=== PATIENT | male | born 1955 | race Caucasian/White ===

== ENCOUNTER 2019-11-29 09:13 | Outpatient (CLI) | payer MEDICARE, SELFPAY ==
[2019-11-29 10:30] LABS: Alanine Aminotransferase 23 U/L (16-63); Albumin Level 3.7 g/dL (3.4-5.0); Alkaline Phosphatase 131 U/L (46-116); Anion Gap 12.1 mmol/L (7-16); Aspartate Amino Transferase 17 U/L (15-37); Bilirubin,Total 0.7 mg/dL (0.00-1.00); Blood Urea Nitrogen 16 mg/dL (7-18); Calcium 9.5 mg/dL (8.5-10.1); Carbon Dioxide 29 mmol/L (21-32); Chloride 102 mmol/L (98-108); Estimated Glomerular Filt Rate > 60; Glucose 123 mg/dL (70-99); Osmolality Calculated 290 mOsm/kg (285-295); Potassium 4.1 mmol/L (3.5-5.1); Sodium 139 mmol/L (136-145); Total Protein 6.9 g/dL (6.4-8.2)
== END 2019-11-29 09:14 | disposition home or self-care (01) ==
LOC: CHSLAB 09:17
PROVIDERS: PCP Internal Medicine; Visit Provider Physician Assistant
DX: E11.9 Type 2 diabetes mellitus without complications (principal)
CPT/HCPCS: 36415; 80053; 83036

== ENCOUNTER 2020-05-01 08:19 | Outpatient (CLI) | payer MEDICARE, SELFPAY ==
[2020-05-01 08:35] LABS: Hematocrit 47.4 % (37.0-46.0); Hemoglobin 15.9 g/dL (12.4-15.3); Mean Corpuscular HGB Conc 33.5 g/dL (32.0-36.0); Mean Corpuscular Volume 98.3 fL (78.0-102.0); Mean Platelet Volume 9.7 fl (8.7-11.0); Platelet Count Result 298 K/mm3 (150-420); Red Blood Count 4.82 M/mm3 (4.70-6.10); Red Cell Distribution Width 12.3 % (11.6-14.4); White Blood Count 8.9 K/mm3 (4.8-10.8)
[2020-05-01 09:07] LABS: Hemoglobin A1C 6.9 % (<5.7)
[2020-05-01 10:05] LABS: Alanine Aminotransferase 22 U/L (16-63); Alkaline Phosphatase 138 U/L (46-116); Anion Gap 9 mmol/L (8-16); Aspartate Amino Transferase 10 U/L (15-37); Bilirubin,Total 0.6 mg/dL (0.00-1.00); Blood Urea Nitrogen 15 mg/dL (7-18); Calcium 9.8 mg/dL (8.5-10.1); Carbon Dioxide 29 mmol/L (21-32); Chloride 104 mmol/L (98-108); Cholesterol 138 mg/dL (0-200); Estimated Glomerular Filt Rate > 60; Glucose 130 mg/dL (70-99); HDL Direct 45 mg/dL (40-60); LDL Cholesterol Calculated 61 mg/dL (<130); Osmolality Calculated 296 mOsm/kg (285-295); Potassium 4.2 mmol/L (3.5-5.1); Prostate Specific Antigen 0.5 ng/mL (< OR = 4.0); Sodium 142 mmol/L (136-145); Thyroid Stimulating Hormone 1.34 uIU/mL (0.36-3.74); Total Protein 7.1 g/dL (6.4-8.2); Triglycerides 159 mg/dL (0-150)
== END 2020-05-01 08:20 | disposition home or self-care (01) ==
PROVIDERS: PCP Internal Medicine; Visit Provider Physician Assistant
DX: R53.83 Other fatigue (principal); E11.9 Type 2 diabetes mellitus without complications; Z12.5 Encounter for screening for malignant neoplasm of prostate; Z01.83 Encounter for blood typing
CPT/HCPCS: 36415; 80053; 80061; 83036; 84153; 84443; 85027; 86850; 86900; 86901; G0103

== ENCOUNTER 2020-11-13 08:52 | Outpatient (CLI) | payer MEDICARE, SELFPAY ==
[2020-11-13 09:10] LABS: Hemoglobin A1C 7.5 % (<5.7)
[2020-11-13 09:49] LABS: Alanine Aminotransferase 24 U/L (16-63); Albumin Level 3.8 g/dL (3.4-5.0); Alkaline Phosphatase 135 U/L (46-116); Anion Gap 12 mmol/L (8-16); Aspartate Amino Transferase 11 U/L (15-37); Bilirubin,Total 0.7 mg/dL (0.00-1.00); Blood Urea Nitrogen 15 mg/dL (7-18); Calcium 9.5 mg/dL (8.5-10.1); Carbon Dioxide 29 mmol/L (21-32); Chloride 100 mmol/L (98-108); Estimated Glomerular Filt Rate > 60; Glucose 132 mg/dL (70-99); Osmolality Calculated 294 mOsm/kg (285-295); Potassium 4.1 mmol/L (3.5-5.1); Sodium 141 mmol/L (136-145); Total Protein 6.7 g/dL (6.4-8.2)
== END 2020-11-13 08:53 | disposition home or self-care (01) ==
LOC: CHSLAB 08:54
PROVIDERS: PCP Internal Medicine; Visit Provider Physician Assistant
DX: E11.9 Type 2 diabetes mellitus without complications (principal)
CPT/HCPCS: 36415; 80053; 83036

== ENCOUNTER 2020-12-20 01:41 | Day surgery (SDC) | payer MEDICARE, SELFPAY ==
[2020-12-11 11:16] VITALS: BMI 28.0
[2020-12-20 07:41] VITALS: BP 115/76; PULSE 63; RESP 18; TEMP 36.1; O2SAT 99; BMI 28.4
[2020-12-20] MEDS: LACTATED RINGERS 1,000 ML 150 ML IV CONT (07:49)
[2020-12-20 07:59] LABS: Glucose Point of Care 139 mg/dl (65-105)
--- NOTE | 2020-12-20 08:29 | WPDANESEPPF ---
Anes - Initial Pre Proc Eval Procedure: Operation Date: 12/20/20 09:00 Proposed Procedures p Esophagogastroduodenoscopy & Screening Colonoscopy - Bear Kirkpatrick MD Date/Time: 12/20/20 08:29 Surgeon: Bear Kirkpatrick MD Pre Op Diagnosis: early satiety, neoplasm screening Patient Data Age: 65 Gender: M Height: 1.75 m Weight: 87.4 kg Last Vital Signs Temp 36.1 C L 12/20/20 07:41 Pulse 63 12/20/20 07:41 Resp 18 12/20/20 07:41 BP 115/76 12/20/20 07:41 Pulse Ox 99 12/20/20 07:41 Allergies Allergy/AdvReac Type Severity Reaction Status Date / Time lisinopril Allergy Severe SWELLING Verified 12/20/20 07:40 OF THROAT AND TONGUE Home Medications Medication Instructions Recorded Confirmed Type finasteride 5 mg tablet 5 mg PO DAILY #90 tablet 07/03/20 12/20/20 Rx atorvastatin 20 mg tablet 20 mg PO DAILY #90 tablet 07/07/20 12/20/20 Rx allopurinol 300 mg tablet 300 mg PO DAILY #90 tablet 10/27/20 12/20/20 Rx omeprazole 40 mg capsule,delayed 40 mg PO DAILY #90 cap 11/14/20 12/20/20 Rx release diltiazem HCl 240 mg 240 mg PO DAILY #90 cap 11/23/20 12/20/20 Rx capsule,extended release 24 hr empagliflozin 25 mg tablet 25 mg PO DAILY #90 tablet 11/28/20 12/20/20 Rx metformin 1,000 mg tablet 1,000 mg PO BID #180 tablet 11/28/20 12/20/20 Rx telmisartan 80 mg tablet 80 mg PO DAILY #90 tablet 11/28/20 12/20/20 Rx trazodone 50 mg tablet 50 mg PO QHS PRN #90 tablet 11/28/20 12/20/20 Rx Laboratory Tests 12/20/20 07:57 POC Capillary Glucose 139 mg/dl H mg/dl (65-105) Patient hx anesthesia problems: none Family hx anesthesia problems: none PMFSH Past Medical History Medical History Diabetes mellitus last A1c in chart 12/31/19 7.0 GERD (gastroesophageal reflux disease) Kidney stones Right rotator cuff tear Skin cancer Weight loss Surgical History Surgical History History of arthroscopy of right shoulder Hx of cataract surgery (~2017) S/P right rotator cuff repair Family History Family History Mother Hypertension Family history of heart disease in male family member before age 55 Family history of congestive heart failure, Onset Age: 89 Cerebrovascular accident Father Acute myocardial infarction FH myocardial infarction male first degree age known, Onset Age: 59 Hypertension Other Carcinoma of colon Diabetes mellitus Social History Social History Smoking status: Never smoker Second hand tobacco smoke exposure: No Alcohol intake: current Drinks per week: 1 Alcohol use details: 1-2 drinks a month Substance use: never Living arrangements: alone Spiritual care concerns: No Anes - Eval Final PreProcedure Day of Procedure 12/20/20 08:29 Patient weight: overweight Heart: regular rate and rhythm Lungs: clear to auscultation Airway: Mallampati scale class II Neurological: alert and oriented Last oral intake: >/= 8 hours ASA classification: III Emergent: no Anesthetic plan: proceed Anesthesia type and monitoring: general GIVS and standard monitoring Informed Consent: The patient's anesthetic plan and its attendant risks and benefits were discussed with the patient/family/POA. Questions were solicited and answers provided to the satisfaction of the patient/family/POA.
--- NOTE | 2020-12-20 08:56 | PM.HPGS ---
History of Present Illness History of Present Illness Consent: Risks, benefits, and alternatives have been discussed and questions answered. Patient agrees to proceed with procedure. Chief complaint: early satiety, neoplasm screening Narrative: Tony Pelayo is a 65 year old male with early satiety and weight loss. he has lost 8 lb this year alone. He is also due for colon cancer screening Review of Systems Review of Systems: All systems reviewed & are unremarkable except as noted in HPI and below PMFSH Past Medical History Medical History (Updated 12/20/20 @ 08:57 by Bear Kirkpatrick MD) Diabetes mellitus last A1c in chart 05/17/19 7.0 GERD (gastroesophageal reflux disease) Kidney stones Right rotator cuff tear Skin cancer Weight loss Surgical History Surgical History History of arthroscopy of right shoulder Hx of cataract surgery (~2016) S/P right rotator cuff repair Family History Family History Mother Hypertension Family history of heart disease in male family member before age 55 Family history of congestive heart failure, Onset Age: 89 Cerebrovascular accident Father Acute myocardial infarction FH myocardial infarction male first degree age known, Onset Age: 59 Hypertension Other Carcinoma of colon Diabetes mellitus Social History Social History Smoking status: Never smoker Second hand tobacco smoke exposure: No Alcohol intake: current Drinks per week: 1 Alcohol use details: 1-2 drinks a month Substance use: never Living arrangements: alone Spiritual care concerns: No Meds Home Medications and Allergies Home Medications Medication Instructions Recorded Confirmed Type finasteride 5 mg tablet 5 mg PO DAILY #90 tablet 07/03/20 12/20/20 Rx atorvastatin 20 mg tablet 20 mg PO DAILY #90 tablet 07/07/20 12/20/20 Rx allopurinol 300 mg tablet 300 mg PO DAILY #90 tablet 10/27/20 12/20/20 Rx omeprazole 40 mg capsule,delayed 40 mg PO DAILY #90 cap 11/14/20 12/20/20 Rx release diltiazem HCl 240 mg 240 mg PO DAILY #90 cap 11/23/20 12/20/20 Rx capsule,extended release 24 hr empagliflozin 25 mg tablet 25 mg PO DAILY #90 tablet 11/28/20 12/20/20 Rx metformin 1,000 mg tablet 1,000 mg PO BID #180 tablet 11/28/20 12/20/20 Rx telmisartan 80 mg tablet 80 mg PO DAILY #90 tablet 11/28/20 12/20/20 Rx trazodone 50 mg tablet 50 mg PO QHS PRN #90 tablet 11/28/20 12/20/20 Rx Allergies Allergy/AdvReac Type Severity Reaction Status Date / Time lisinopril Allergy Severe SWELLING Verified 12/20/20 07:40 OF THROAT AND TONGUE Vital Signs Vital Signs - 24 hr 12/20/20 07:41 Temperature 36.1 C L Pulse Rate 63 Respiratory Rate 18 Blood Pressure 115/76 Pulse Oximetry 99 Exam Resp: Auscultation: clear to auscultation bilaterally Cardio: Rate: regular rate Rhythm: regular rhythm GI: GI Palp: Yes Soft to palpation and No Tenderness to palpation present (GI) Assessment and Plan Assessment and plan (1) Weight loss: Code(s): R63.4 - Abnormal weight loss Status: Acute Assessment and Plan: EGD with possible biopsy or dilatation or cautery. (2) Colon cancer screening: Code(s): Z12.11 - Encounter for screening for malignant neoplasm of colon Status: Acute Assessment and Plan: Colonoscopy with possible biopsy or polypectomy or cautery or injection of substances.
[2020-12-20 09:42] VITALS: BP 97/64; PULSE 48; RESP 15; O2SAT 97
[2020-12-20 09:52] VITALS: BP 129/78; PULSE 61; RESP 20; O2SAT 98
[2020-12-20 10:02] VITALS: BP 115/62; PULSE 49; RESP 24; O2SAT 98
== END 2020-12-20 10:18 | disposition home or self-care (01) ==
PROVIDERS: PCP Physician Assistant; Visit Provider Internal Medicine Gastroenterology
PROC: 0DJ08ZZ Inspection of Upper Intestinal Tract, Via Natural or Artificial Opening Endoscopic (ICD-10-PCS; CPT 43235; principal; 2020-12-20 09:00)
DX: Z12.11 Encounter for screening for malignant neoplasm of colon (principal); K57.30 Diverticulosis of large intestine without perforation or abscess without bleeding; D12.2 Benign neoplasm of ascending colon; R63.4 Abnormal weight loss; K21.9 Gastro-esophageal reflux disease without esophagitis; E11.9 Type 2 diabetes mellitus without complications; Z79.84 Long term (current) use of oral hypoglycemic drugs
CPT/HCPCS: 45381; 45385; 43239; 82948; 87081; 88305; J2001; J2704; J7120

== ENCOUNTER 2020-12-31 14:09 | Emergency (ER) | payer MEDICARE, SELFPAY ==
--- NOTE | ~2020-12-31 | CT_ITS ---
EXAMINATION: CT soft tissue neck wo con DATE: 12/31/2020 14:58 INDICATION: Right anterior neck foreign body sensation. TECHNIQUE: Computed tomography (CT) of the neck was performed without intravenous contrast. Automated exposure control and iterative reconstruction technique were employed. The dose-length product was 6 30.82 mGy-cm. COMPARISON: None FINDINGS: There are no pathologically enlarged lymph nodes. There is a coarse calcification in right thyroid lobe. There is moderate cervical spondylosis. IMPRESSION: 1. No foreign body. Reviewed, dictated and finalized at location B. IMPRESSION: 1. No foreign body.
[2020-12-31 14:15] VITALS: BP 156/94; PULSE 76; RESP 20; TEMP 37; O2SAT 95
--- NOTE | 2020-12-31 14:23 | ED.URI ---
HPI - URI/Sore Throat General Chief Complaint: Upper Respiratory Infection Stated Complaint: Throat Issues Time Seen by Provider: 12/31/20 14:23 Source: patient Mode of arrival: ambulatory Limitations: no limitations History of Present Illness HPI Narrative: 65-year-old man comes in today complaining of 5 days of foreign body sensation in his right upper neck. Patient states that it is not painful and is not inhibit swallowing or breathing and has had no fever, sore throat, or swelling. He states that it is keeping him awake at night time. He states he 1st noticed it while mowing the lawn; he thinks something flew into his mouth. He states he also feels like there is something moving down his throat. elicited complaint: other (Foreign body sensation) Onset (ago): day(s) (5) Consistency: constant Severity: moderate Able to tolerate fluids by mouth: Yes Exacerbating factors: supine positioning Relieving factors: nothing Associated symptoms: denies other symptoms Treatments prior to arrival: none Related Data Home Medications Medication Instructions Recorded Confirmed empagliflozin [Jardiance] 25 mg PO DAILY 12/31/20 12/31/20 Allergies Allergy/AdvReac Type Severity Reaction Status Date / Time lisinopril Allergy Severe SWELLING Verified 12/20/20 07:40 OF THROAT AND TONGUE Review of Systems Constitutional: Constitutional: Denies chills and Denies fever(s) Eyes: Eyes: Denies change in vision and Denies photophobia ENT: Denies nasal congestion and Denies sore throat Cardiovascular: Cardiovascular: Denies chest pain and Denies radiating jaw, neck or arm pain Respiratory: Respiratory: Denies cough and Denies dyspnea Gastrointestinal: Gastrointestinal: Denies abdominal pain, Denies nausea and Denies vomiting Musculoskeletal: Musculoskeletal: Denies back pain, Denies arthralgias and Denies joint swelling Integumentary/Breasts: Skin/Breast: Denies pruritus, Denies erythema and Denies rash Neurologic: Denies headache(s), Denies focal weakness and Denies numbness Allergic/Immunologic: Allergic/Immunologic: Denies lip swelling, Denies throat swelling and Denies tongue swelling PMFSH Past Medical History Medical History (Updated 12/31/20 @ 15:48 by Branden Valladares MD) Diabetes mellitus last A1c in chart 05/17/19 7.0 GERD (gastroesophageal reflux disease) Kidney stones Right rotator cuff tear Skin cancer Weight loss Surgical History Surgical History History of arthroscopy of right shoulder Hx of cataract surgery (~2017) S/P right rotator cuff repair Family History Family History Mother Hypertension Family history of heart disease in male family member before age 55 Family history of congestive heart failure, Onset Age: 89 Cerebrovascular accident Father Acute myocardial infarction FH myocardial infarction male first degree age known, Onset Age: 59 Hypertension Other Carcinoma of colon Diabetes mellitus Social History Social History Smoking status: Never smoker Second hand tobacco smoke exposure: No Alcohol intake: current Drinks per week: 1 Alcohol use details: 1-2 drinks a month Substance use: never Spiritual care concerns: No Exam Const: General: healthy appearing, no acute distress and alert Orientation/consciousness: patient oriented x3 Limitations: no limitations HENMT: Head: normal to inspection Ears: EAC's normal General nose exam: Normal nares present Face and sinus: normal facial exam Mouth: Yes moist mucous membranes Throat: posterior oropharynx normal Eyes: Conjunctivae: conjunctivae normal Pupils: Equal, round and reactive pupils present EOM: EOMs intact bilaterally Neck: Neck: normal visual inspection and no lymphadenopathy Other: Supple. No tenderness, masses, swe
[2020-12-31 15:56] VITALS: RESP 20
== END 2020-12-31 15:57 | disposition home or self-care (01) ==
PROVIDERS: Emergency Provider Emergency Medicine; PCP Internal Medicine
DX: R09.89 Other specified symptoms and signs involving the circulatory and respiratory systems (principal); E11.9 Type 2 diabetes mellitus without complications; K21.9 Gastro-esophageal reflux disease without esophagitis
CPT/HCPCS: 70490; 99283

== ENCOUNTER 2021-03-26 10:40 | Emergency (ER) | payer MEDICARE, SELFPAY ==
--- NOTE | ~2021-03-26 | CT_ITS ---
EXAMINATION: CT cervical spine wo con DATE: 03/26/2021 12:13 INDICATION: Head injury. TECHNIQUE: Computed tomography (CT) of the cervical spine was performed without intravenous contrast. Automated exposure control and iterative reconstruction technique were employed. The dose-length pro duct was 488.06 mGy-cm. COMPARISON: Neck CT 12/31/2020 FINDINGS: There is 4 degrees dextrocurvature of cervical spine. Vertebral body heights are normal. Th ere is mildly decreased disc height at C3-C4 and C5-C6 and moderately decreased disc height at C6-C7. The following disc levels are specifically discussed: C2-C3: There is mild right uncovertebral joint osteoarthritis. There is mild right and moderate left facet joint osteoarthritis. There is no neural foraminal stenosis. There is no central canal stenosis . C3-C4: There is severe right and mild left uncovertebral joint osteoarthritis. There is mild bilatera l facet joint osteoarthritis. There is mild right neural foraminal stenosis. There is no central fauzia l stenosis. C4-C5: There is no uncovertebral joint osteoarthritis. There is mild left facet joint osteoarthritis. There is no neural foraminal stenosis. There is no central canal stenosis. C5-C6: There is mild bilateral uncovertebral joint osteoarthritis. There is no facet joint osteoarthr itis. There is mild bilateral neural foraminal stenosis. There is mild central canal stenosis. C6-C7: There is severe bilateral uncovertebral joint osteoarthritis. There is no facet joint osteoart hritis. There is mild bilateral neural foraminal stenosis. There is mild central canal stenosis. C7-T1: There is no uncovertebral joint osteoarthritis. There is severe right and mild left facet join t osteoarthritis. There is mild right neural foraminal stenosis. There is no central canal stenosis. IMPRESSION: 1. No fracture. 2. Moderate cervical spondylosis. Reviewed, dictated and finalized at location A. FRAME SOFTWARE DEVELOPER
--- NOTE | ~2021-03-26 | CT_ITS ---
EXAMINATION: CT brain wo con DATE: 03/26/2021 12:13 INDICATION: Head injury. TECHNIQUE: Computed tomography (CT) of the head was performed without intravenous contrast. The mA wa s adjusted according to patient size. Iterative reconstruction technique was employed. The dose-lengt h product was 529.67 mGy-cm. COMPARISON: None FINDINGS: There is an old infarct in left cerebellum. There is no intracranial hemorrhage, acute infa rction, or abnormal intracranial mass lesion. The ventricles are normal in size. There is mild mucosa l thickening in the ethmoid sinuses. The mastoid air cells are normal. The orbits are normal. IMPRESSION: 1. Old infarct in left cerebellum. Reviewed, dictated and finalized at location A. RMATION ASSURANCE MANAGER
--- NOTE | ~2021-03-26 | XR_ITS ---
EXAMINATION: XR knee RT 3V DATE: 03/26/2021 12:19 INDICATION: Right knee injury. TECHNIQUE: 3 views of right knee were obtained. COMPARISON: None. FINDINGS: There is lateral subluxation of patella. No fracture. There is mild tricompartmental osteoa rthritis. There is a small knee joint effusion. There is anterior soft tissue swelling. IMPRESSION: 1. Mild right knee osteoarthritis. 2. Small right knee joint effusion. Reviewed, dictated and finalized at location A. ABLE IRRIGATION OPERATOR
--- NOTE | 2021-03-26 10:41 | PC.NURSE ---
Went out to waiting room and checked on pt. Multiple abrasions noted to the face. Bleeding controlled. Pt denies LOC.
[2021-03-26 11:30] VITALS: BP 159/74; PULSE 71; RESP 16; TEMP 37.3; O2SAT 96
--- NOTE | 2021-03-26 11:31 | ED.FALL ---
HPI - Fall General Chief Complaint: Fall Stated Complaint: fell up the step Time Seen by Provider: 03/26/21 11:31 Source: patient Mode of arrival: ambulatory Limitations: no limitations History of Present Illness HPI Narrative: 66-year-old male with diabetes mellitus, GERD, skin cancer, bilateral shoulder surgeries got his foot caught up and fell on his face. No loss of consciousness. No neck or back pain. He presents with -- extensive bruising of his left face involving the forehead the left cheek nose and chin. No ENT bleeding. -- right knee abrasion. normal range of motion. complaint: fall Onset (ago): minute(s) ( 2-1/2 hours ago) Fall from: standing Fall witnessed: no Place fall occurred: home Loss of consciousness: none Symptoms prior to fall: none Context: tripped/slipped Location of injury: face and other ( right knee) Location of injury - extremities: Right: knee Severity: moderate Severity scale (1-10): 3 Quality: burning Associated symptoms (after fall): denies Related Data Home Medications Medication Instructions Recorded Confirmed empagliflozin [Jardiance] 25 mg PO DAILY 12/31/20 12/31/20 Allergies Allergy/AdvReac Type Severity Reaction Status Date / Time lisinopril Allergy Severe SWELLING Verified 12/20/20 07:40 OF THROAT AND TONGUE Review of Systems Review of Systems: All systems reviewed & are unremarkable except as noted in HPI and below Constitutional: Constitutional: Reports as per HPI Eyes: Eyes: Reports as per HPI and Reports no additional eye complaints ENT: Reports system reviewed and no additional complaints, except as documented Cardiovascular: Cardiovascular: Reports as per HPI and Reports no additional cardiovascular complaints Respiratory: Respiratory: Reports as per HPI and Reports no additional respiratory complaints Gastrointestinal: Gastrointestinal: Reports as per HPI and Reports no additional gastrointestinal complaints Genitourinary: Genitourinary: Reports no additional male genitourinary complaints Musculoskeletal: Comments: right knee pain he Integumentary/Breasts: Comments: extensive abrasion over the left face and right knee. Neurologic: Reports system reviewed and no additional complaints, except as documented Psychiatric: Psychiatric: Reports no additional psychiatric complaints Endocrine: Endocrine: Reports no additional endocrine complaints Hematologic/Lymphatic: Hematologic/Lymphatic: Reports no additional hematologic/lymphatic complaints [facility] Past Medical History Medical History (Updated 03/26/21 @ 12:43 by Be De Jesus MD) Diabetes mellitus last A1c in chart 05/17/19 7.0 GERD (gastroesophageal reflux disease) Kidney stones Right rotator cuff tear Skin cancer Weight loss Surgical History Surgical History History of arthroscopy of right shoulder Hx of cataract surgery (~2017) S/P right rotator cuff repair Family History Family History Mother Hypertension Family history of heart disease in male family member before age 55 Family history of congestive heart failure, Onset Age: 89 Cerebrovascular accident Father Acute myocardial infarction FH myocardial infarction male first degree age known, Onset Age: 59 Hypertension Other Carcinoma of colon Diabetes mellitus Social History Social History Smoking status: Never smoker Second hand tobacco smoke exposure: No Alcohol intake: current Drinks per week: 1 Alcohol use details: 1-2 drinks a month Substance use: never Spiritual care concerns: No Exam Const: General: cooperative and anxious HENMT: Head: normal to inspection, No palpable skull fracture present, normocephalic and abrasion ( Abrasions over the left face including the forehead left cheek left nose ) Ears:
[2021-03-26 13:36] VITALS: BP 164/90; PULSE 65; RESP 16; O2SAT 96
== END 2021-03-26 14:10 | disposition home or self-care (01) ==
PROVIDERS: Emergency Provider Internal Medicine Critical Care Medicine; PCP Internal Medicine
DX: S09.90XA Unspecified injury of head, initial encounter (principal); T14.8XXA Other injury of unspecified body region, initial encounter; W19.XXXA Unspecified fall, initial encounter; E11.9 Type 2 diabetes mellitus without complications; K21.9 Gastro-esophageal reflux disease without esophagitis
CPT/HCPCS: 70450; 72125; 73562; 99282; 99284

== ENCOUNTER 2021-05-03 10:33 | Outpatient (CLI) | payer MEDICARE, SELFPAY ==
[2021-05-03 10:55] LABS: Hemoglobin 16.1 g/dL (12.4-15.3); Mean Corpuscular HGB Conc 34.3 g/dL (32.0-36.0); Mean Corpuscular Hemoglobin 32.6 pg (27.0-31.0); Mean Corpuscular Volume 95.1 fL (78.0-102.0); Mean Platelet Volume 9.9 fl (8.7-11.0); Platelet Count Result 254 K/mm3 (150-420); Red Blood Count 4.94 M/mm3 (4.70-6.10); White Blood Count 8.8 K/mm3 (4.8-10.8)
[2021-05-03 11:07] LABS: Hemoglobin A1C 8.3 % (<5.7)
[2021-05-03 11:44] LABS: Alanine Aminotransferase 25 U/L (16-63); Albumin Level 3.6 g/dL (3.4-5.0); Alkaline Phosphatase 171 U/L (46-116); Anion Gap 7 mmol/L (8-16); Aspartate Amino Transferase 12 U/L (15-37); Bilirubin,Total 0.9 mg/dL (0.00-1.00); Blood Urea Nitrogen 11 mg/dL (7-18); Calcium 9.3 mg/dL (8.5-10.1); Carbon Dioxide 30 mmol/L (21-32); Chloride 105 mmol/L (98-108); Cholesterol 150 mg/dL (0-200); Estimated Glomerular Filt Rate > 60; Glucose 177 mg/dL (70-99); HDL Direct 44 mg/dL (40-60); LDL Cholesterol Calculated 76 mg/dL (<130); Osmolality Calculated 297 mOsm/kg (285-295); Potassium 4.5 mmol/L (3.5-5.1); Prostate Specific Antigen 0.5 ng/mL (< OR = 4.0); Sodium 142 mmol/L (136-145); Total Protein 6.8 g/dL (6.4-8.2); Triglycerides 150 mg/dL (0-150); Vitamin B12 114 pg/mL (193-986)
[2021-05-03 11:45] LABS: Folic Acid > 20.0 ng/mL (8.6->20)
== END 2021-05-03 10:34 | disposition home or self-care (01) ==
LOC: CHSLAB 10:35
PROVIDERS: PCP Physician Assistant; Visit Provider Physician Assistant
DX: E11.9 Type 2 diabetes mellitus without complications (principal); E66.3 Overweight; Z12.5 Encounter for screening for malignant neoplasm of prostate; R53.83 Other fatigue
CPT/HCPCS: 36415; 80053; 80061; 82607; 82746; 83036; 84153; 84443; 85027; G0103

== ENCOUNTER 2021-05-08 09:49 | Outpatient (CLI) | payer MEDICARE, SELFPAY ==
[2021-05-10 13:13] LABS: Mitochondrial (M2) Ab (IgG) <=20.0 U (<=20.0)
== END 2021-05-08 09:50 | disposition home or self-care (01) ==
LOC: CHSLAB 09:51
PROVIDERS: PCP Internal Medicine; Visit Provider Physician Assistant
DX: R74.8 Abnormal levels of other serum enzymes (principal)
CPT/HCPCS: 36415; 83520

== ENCOUNTER 2021-08-07 10:00 | Outpatient (CLI) | payer MEDICARE, SELFPAY ==
[2021-08-07 10:37] LABS: Hemoglobin A1C 7.6 % (<5.7)
[2021-08-07 12:28] LABS: Alanine Aminotransferase 21 U/L (16-63); Albumin Level 3.6 g/dL (3.4-5.0); Alkaline Phosphatase 121 U/L (46-116); Anion Gap 8 mmol/L (8-16); Aspartate Amino Transferase 15 U/L (15-37); Bilirubin,Total 0.8 mg/dL (0.00-1.00); Blood Urea Nitrogen 17 mg/dL (7-18); Calcium 8.9 mg/dL (8.5-10.1); Carbon Dioxide 29 mmol/L (21-32); Chloride 103 mmol/L (98-108); Estimated Glomerular Filt Rate > 60; Glucose 157 mg/dL (70-99); Osmolality Calculated 294 mOsm/kg (285-295); Sodium 140 mmol/L (136-145); Total Protein 6.6 g/dL (6.4-8.2); Vitamin B12 217 pg/mL (193-986)
== END 2021-08-07 10:01 | disposition home or self-care (01) ==
LOC: CHSLAB 10:02
PROVIDERS: PCP Internal Medicine; Visit Provider Physician Assistant
DX: E11.9 Type 2 diabetes mellitus without complications (principal); E53.8 Deficiency of other specified B group vitamins
CPT/HCPCS: 36415; 80053; 82607; 82746; 83036

== ENCOUNTER 2022-01-31 09:53 | Outpatient (CLI) | payer MEDICARE, SELFPAY ==
[2022-01-31 10:20] LABS: Hemoglobin A1C 8.6 % (<5.7)
[2022-01-31 10:31] LABS: Alanine Aminotransferase 18 U/L (16-63); Albumin Level 3.7 g/dL (3.4-5.0); Alkaline Phosphatase 157 U/L (46-116); Anion Gap 10 mmol/L (8-16); Aspartate Amino Transferase 13 U/L (15-37); Bilirubin,Total 0.9 mg/dL (0.00-1.00); Blood Urea Nitrogen 14 mg/dL (7-18); Calcium 9.1 mg/dL (8.5-10.1); Carbon Dioxide 25 mmol/L (21-32); Chloride 104 mmol/L (98-108); Estimated Glomerular Filt Rate > 60; Glucose 157 mg/dL (70-99); Osmolality Calculated 291 mOsm/kg (285-295); Potassium 3.8 mmol/L (3.5-5.1); Sodium 139 mmol/L (136-145); Total Protein 6.8 g/dL (6.4-8.2)
[2022-02-03 07:57] LABS: MALB Creatinine Ratio 188.4 mg/g (0-30)
== END 2022-01-31 09:54 | disposition home or self-care (01) ==
PROVIDERS: PCP Internal Medicine; Visit Provider Physician Assistant
DX: E11.9 Type 2 diabetes mellitus without complications (principal)
CPT/HCPCS: 36415; 80053; 82043; 83036

== ENCOUNTER 2022-03-14 11:34 | Outpatient (RCR) | payer MEDICARE, SELFPAY ==
--- NOTE | 2022-03-14 12:13 | PTOPEVAL1 ---
Assessment and note entered by JT File, PT Evaluation Information Assessment Status Evaluation Diagnosis R shoulder RTC tear Onset 03/11/22 Subjective Information patient reports he is having a flare up of pain in the R shoulder following a fall at home. he reports the shoulder is a bit better since his fall, but reports he has had shoulder issues for years. he reports he was told he has a full rotator cuff tear in the R shoulder. he reports he is trying to put off shoulder surgery due to living alone. 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 Reported Pain Level Pain Score 3: Self Report Assessment PT Clinical Summary mr. main is a 67 yo man who presents to skilled PT services for evaluation and treatment of R shoulder pain. he presents this date with signs and symptoms of R worse than L RTC tendinopathy/weakness, and L worse than R OA. he would do well to attend skilled PT to improve his objective/funcitonal deficits and progress towards a return to his prior level functional activity performance/quality of life. Plan of Care Interventions Electrical Stimulation,Hot Pack/Cold Pack,Manual Therapy,Patient/Caregiver Educati,Therapeutic Activities,Therapeutic Exercise PT Services Indicated Yes Treatment Frequency and 3x weekly for 12 visits Duration These treatments will address the objective and functional deficits as defined above. The patient will be advanced safely and appropriately in order for the patient to progress towards his/her prior level of function. Additional exercises will be introduced and as well as a comprehensive home exercise program upon discharge, if needed, ?to ensure carryover of functional gains achieved in the clinic. This treatment plan has been reviewed and agreement upon by the patient.
--- NOTE | 2022-04-18 16:32 | PTOPDC ---
Assessment and note entered by JT File, PT Evaluation Information Assessment Status Discharge Diagnosis R shoulder RTC tear Onset 03/11/22 Subjective Information patient reports he feels Great this date. he reports little to no pain in the R shoulder. he reports feeling both his mobility and strength are improved scine coming to therapy.
== END 2022-04-17 18:00 | disposition home or self-care (01) ==
LOC: CHSPT 11:34
PROVIDERS: Visit Provider Nurse Practitioner
DX: M75.121 Complete rotator cuff tear or rupture of right shoulder, not specified as traumatic (principal)
CPT/HCPCS: 97014; 97110; 97161; G0283

== ENCOUNTER 2022-07-02 10:16 | Outpatient (CLI) | payer MEDICARE, SELFPAY ==
[2022-07-02 10:30] LABS: Basophils Absolute Auto 0.08 K/mm3 (0.00-0.10); Basophils Percent Auto 0.9 % (0.0-1.0); Eosinophils Absolute Auto 0.09 K/mm3 (0.02-0.50); Hematocrit 46.9 % (37.0-46.0); Hemoglobin 16.1 g/dL (12.4-15.3); Immature Granulocyte Absolute 0.05 K/mm3 (0.00-0.00); Immature Granulocyte Percent A 0.6 % (0.0-0.0); Lymphocytes Percent Auto 16.5 % (18.0-42.0); Mean Corpuscular HGB Conc 34.3 g/dL (32.0-36.0); Mean Corpuscular Hemoglobin 32.3 pg (27.0-31.0); Mean Corpuscular Volume 94.2 fL (78.0-102.0); Mean Platelet Volume 9.4 fl (8.7-11.0); Monocytes Absolute Auto 0.82 K/mm3 (0.10-0.90); Neutrophils Absolute Auto 6.6 K/mm3 (1.7-7.2); Platelet Count Result 289 K/mm3 (150-420); Red Blood Count 4.98 M/mm3 (4.70-6.10); White Blood Count 9.1 K/mm3 (4.8-10.8)
[2022-07-02 10:42] LABS: Hemoglobin A1C 8.7 % (<5.7)
[2022-07-02 11:27] LABS: Alanine Aminotransferase 16 U/L (16-63); Albumin Level 3.8 g/dL (3.4-5.0); Alkaline Phosphatase 163 U/L (46-116); Anion Gap 5 mmol/L (8-16); Aspartate Amino Transferase 15 U/L (15-37); Bilirubin,Total 0.8 mg/dL (0.00-1.00); Blood Urea Nitrogen 11 mg/dL (7-18); Calcium 9.2 mg/dL (8.5-10.1); Carbon Dioxide 32 mmol/L (21-32); Chloride 101 mmol/L (98-108); Cholesterol 154 mg/dL (0-200); Estimated Glomerular Filt Rate > 60; Glucose 150 mg/dL (70-99); HDL Direct 52 mg/dL (40-60); LDL Cholesterol Calculated 76 mg/dL (<130); Osmolality Calculated 288 mOsm/kg (285-295); Potassium 3.8 mmol/L (3.5-5.1); Sodium 138 mmol/L (136-145); Thyroid Stimulating Hormone 0.91 uIU/mL (0.36-3.74); Total Protein 7.1 g/dL (6.4-8.2); Triglycerides 128 mg/dL (0-150); Vitamin B12 241 pg/mL (193-986)
== END 2022-07-02 10:17 | disposition home or self-care (01) ==
LOC: CHSLAB 10:18
PROVIDERS: PCP Internal Medicine; Visit Provider Physician Assistant
DX: E11.69 Type 2 diabetes mellitus with other specified complication (principal); E53.8 Deficiency of other specified B group vitamins; E66.3 Overweight; R53.83 Other fatigue
CPT/HCPCS: 36415; 80053; 80061; 82607; 82746; 83036; 84443; 85025

== ENCOUNTER 2022-12-31 09:54 | Outpatient (CLI) | payer MEDICARE, SELFPAY ==
[2022-12-31 10:42] LABS: Creatinine Urine 84.73 mg/dL (40-278); Microalbumin Urine Random 22.9 mg/L
[2022-12-31 10:59] LABS: Alanine Aminotransferase 11 U/L (16-63); Albumin Level 3.6 g/dL (3.4-5.0); Alkaline Phosphatase 137 U/L (46-116); Anion Gap 10 mmol/L (8-16); Aspartate Amino Transferase 12 U/L (15-37); Bilirubin,Total 0.9 mg/dL (0.00-1.00); Blood Urea Nitrogen 15 mg/dL (7-18); Carbon Dioxide 29 mmol/L (21-32); Chloride 105 mmol/L (98-108); Estimated Glomerular Filt Rate > 60; Glucose 111 mg/dL (70-99); Osmolality Calculated 299 mOsm/kg (285-295); Potassium 3.8 mmol/L (3.5-5.1); Sodium 144 mmol/L (136-145); Total Protein 6.6 g/dL (6.4-8.2)
== END 2022-12-31 09:55 | disposition home or self-care (01) ==
PROVIDERS: PCP Internal Medicine; Visit Provider Physician Assistant
DX: E11.69 Type 2 diabetes mellitus with other specified complication (principal)
CPT/HCPCS: 36415; 80053; 82043; 83036

== ENCOUNTER 2023-01-26 13:31 | Emergency (ER) | payer MEDICARE, SELFPAY ==
--- NOTE | ~2023-01-26 | XR_ITS ---
EXAMINATION: [id number] Exam Date/Time: 01/26/2023 14:09 CDT HISTORY: blunt trauma-FALL ONTO CURB X3DAYS AGO,PAIN Comparison: CT chest 03/08/2018. RESULT: Lines, tubes, and devices: None. Lungs and pleura: Streaky bibasilar opacities, otherwise clear. Cardiomediastinal silhouette: Stable. Other: No acute upper abdominal finding. Minimally displaced fractures of the right anterior fourth through eighth ribs IMPRESSION: Bibasilar scar/atelectasis. Minimally displaced fractures of the right anterior fourth through eighth ribs. Reviewed, dictated and finalized at location K.
[2023-01-26 13:32] VITALS: BP 151/78; PULSE 72; RESP 20; TEMP 36.8; O2SAT 94
--- NOTE | 2023-01-26 13:58 | ED.GENADULT ---
HPI - General Adult General Chief complaint: Fall Stated complaint: R rib pain/fall Time Seen by Provider: 01/26/23 13:57 History of Present Illness HPI narrative: 67yo man presents with right flank pain of gradual onset after falling 3 days ago, tripping over a curb. No head or neck trauma. Intact ROM. Related Data Home Medications Medication Instructions Recorded Confirmed triamcinolone acetonide 0.1 % 1 applic topical BID 07/08/22 01/26/23 topical cream Allergies Allergy/AdvReac Type Severity Reaction Status Date / Time lisinopril Allergy Severe SWELLING Verified 01/26/23 14:07 OF THROAT AND TONGUE Review of Systems Review of Systems: All systems reviewed & are unremarkable except as noted in HPI and below Constitutional: Constitutional: Denies chills and Denies fever(s) Eyes: Eyes: Denies change in vision ENT: Denies dysphagia and Denies dizziness Cardiovascular: Cardiovascular: Denies chest pain Respiratory: Respiratory: Denies dyspnea PMFSH Past Medical History Medical History B12 deficiency Degenerative arthritis of knee, bilateral Diabetes mellitus last A1c in chart 05/17/19 7.0 Elevated alkaline phosphatase level GERD (gastroesophageal reflux disease) Kidney stones Right rotator cuff tear Skin cancer Weight loss Surgical History Surgical History History of arthroscopy of right shoulder Hx of cataract surgery (~2017) S/P right rotator cuff repair Family History Family History Mother Hypertension Family history of heart disease in male family member before age 55 Family history of congestive heart failure, Onset Age: 89 Cerebrovascular accident Father Acute myocardial infarction FH myocardial infarction male first degree age known, Onset Age: 59 Hypertension Other Carcinoma of colon Diabetes mellitus Social History Social History Smoking status: Never smoker Second hand tobacco smoke exposure: No Alcohol intake: current Drinks per week: 1 Alcohol use details: 1-2 drinks a month Substance use: never Lack of Transportation: No Lack of Food: Never True Current Housing: I Have Housing Concerned About Future Housing: No Difficulty Paying Gas/Electric Bills: No Difficulty Paying for Meds: No Currently Unemployed: No Education: High School Diploma/GED Difficulty w/ Childcare or Family Care: No Living arrangements: alone Spiritual care concerns: No Exam Const: General: healthy appearing and no acute distress Nutritional Appearance: well nourished HENMT: Head: normal to inspection Eyes: Conjunctivae: conjunctivae normal Neck: Other: supple Chest: Chest palpation & inspection: normal inspection of the chest Other: moderate tenderness across the right anterior inferior ribs, no focal point tenderness Resp: Effort & Inspection: normal respiratory effort Cardio: Rate: regular rate GI: Inspection: non-distended GI Palp: Yes Soft to palpation Skin: General skin exam: normal color, no jaundice and no pallor Neuro: General: patient oriented x3 and moves all extremities Gait exam (Neuro): Normal gait present Extrem: General: normal to inspection Course Vital Signs Vital signs: Vital Signs Temperature 36.8 C 01/26/23 13:32 Pulse Rate 72 01/26/23 13:32 Respiratory Rate 20 01/26/23 13:32 Blood Pressure 151/78 H 01/26/23 13:32 Pulse Oximetry 94 01/26/23 13:32 Oxygen Delivery Room Air 01/26/23 13:32 Temperature 36.8 C 01/26/23 13:32 Pulse Rate 72 01/26/23 13:32 Respiratory Rate 20 01/26/23 13:32 Blood Pressure 151/78 H 01/26/23 13:32 Pulse Oximetry 94 01/26/23 13:32 Oxygen Delivery Room Air 01/26/23 13:32 Medical D
[2023-01-26] MEDS: ACETAMINOPHEN 500 MG TABLET 1000 MG PO (14:03)
[2023-01-26] MEDS: methocarbamoL 500 MG TABLET 1000 MG PO (14:03)
[2023-01-26 15:34] VITALS: BP 141/80; PULSE 68; RESP 20; O2SAT 93
== END 2023-01-26 15:34 | disposition home or self-care (01) ==
PROVIDERS: Emergency Provider Emergency Medicine; PCP Internal Medicine
DX: S22.41XA Multiple fractures of ribs, right side, initial encounter for closed fracture (principal); E11.9 Type 2 diabetes mellitus without complications; Z85.828 Personal history of other malignant neoplasm of skin; W01.0XXA Fall on same level from slipping, tripping and stumbling without subsequent striking against object, initial encounter
CPT/HCPCS: 71101; 99283; A9270

== ENCOUNTER 2023-03-25 11:48 | Emergency (ER) | payer MEDICARE, SELFPAY ==
--- NOTE | ~2023-03-25 | US_ITS ---
EXAMINATION: US art doppler w press LE BI DATE: 03/25/2023 12:45 INDICATION: Peripheral vascular disease with cyanosis of the toes. TECHNIQUE: Segmental pressures and plethysmographic and Doppler waveforms of the brachial and lower e xtremity arteries were obtained. COMPARISON: None. FINDINGS: Right and left brachial artery pressures of 146 mm Hg and 153 mm Hg, respectively, are concordant (no rmal difference <= 30 mmHg). The right ankle-brachial index (BELEM) is 1.22 (normal >= 0.9-1). The right great toe-brachial index (T BI) is 0.52 (normal >= 0.6-0.8). Arterial waveforms are biphasic with brisk systolic upstrokes at the right common femoral and popliteal arteries. Monophasic waveforms with brisk systolic upstrokes at t he right posterior tibial and dorsalis pedis arteries. The left BELEM is 0.45. No discernible pulse at the left toes. Arterial waveforms are monophasic with b risk systolic upstrokes at the left common femoral artery. Monophasic waveforms with broadened systol ic peaks with delayed upstrokes at the left popliteal and posterior tibial arteries. No discernible w aveforms at the left dorsalis pedis artery. IMPRESSION: 1. Bilateral arterial occlusive disease with normal right BELEM and mildly decreased right TBI and with severely decreased left BELEM with no discernible pulse at the left dorsalis pedis arteries or at the toes at the left foot. Reviewed, dictated and finalized at location A. [employer] IMPRESSION: 1. Bilateral arterial occlusive disease with normal right BELEM and mildly decrea sed right TBI and with severely decreased left BELEM with no discernible pulse at the left dorsalis pedis arteries or at the toes at the left foot.
[2023-03-25 11:48] VITALS: BP 158/75; PULSE 80; RESP 16; TEMP 36.5; O2SAT 94
--- NOTE | 2023-03-25 11:57 | ED.LOWEXIN ---
HPI - Extremity Injury (Lower) General Chief Complaint: Extremity Problem,Nontraumatic Stated Complaint: left foot pain; cold toes Time Seen by Provider: 03/25/23 11:56 Source: patient Mode of arrival: ambulatory Limitations: no limitations History of Present Illness HPI Narrative: 68-year-old male with a history of diabetes mellitus, hypertension, arthritis, kidney stones, CVA/TIA presents to the ER with -- bluish discoloration of the toes of the left lower extremity for the past 2 weeks. The left foot feels cold. -- pain left lateral leg after walking. Onset (ago): week(s) ( Two weeks) Relieving factors: nothing Exacerbating factors: movement Other symptoms: none Related Data Allergies Allergy/AdvReac Type Severity Reaction Status Date / Time lisinopril Allergy Severe SWELLING Verified 03/25/23 12:08 OF THROAT AND TONGUE Review of Systems Review of Systems: All systems reviewed & are unremarkable except as noted in HPI and below Constitutional: Constitutional: Reports as per HPI and Reports no additional constitutional complaints Eyes: Eyes: Reports as per HPI and Reports no additional eye complaints ENT: Reports system reviewed and no additional complaints, except as documented and Reports as per HPI Cardiovascular: Cardiovascular: Reports as per HPI and Reports no additional cardiovascular complaints Respiratory: Respiratory: Reports as per HPI and Reports no additional respiratory complaints Gastrointestinal: Gastrointestinal: Reports as per HPI and Reports no additional gastrointestinal complaints Genitourinary: Genitourinary: Reports no additional male genitourinary complaints and Reports as per HPI Musculoskeletal: Musculoskeletal: Reports no additional musculoskeletal complaints and Reports as per HPI Comments: lateral leg pain Integumentary/Breasts: Comments: chronic venous stasis changes both legs bluish discoloration of left lower leg and foot Neurologic: Reports system reviewed and no additional complaints, except as documented and Reports as per HPI Psychiatric: Psychiatric: Reports no additional psychiatric complaints and Reports as per HPI Endocrine: Endocrine: Reports no additional endocrine complaints and Reports as per HPI Hematologic/Lymphatic: Hematologic/Lymphatic: Reports no additional hematologic/lymphatic complaints and Reports as per HPI Allergic/Immunologic: Allergic/Immunologic: Reports no additional allergic/immunologic complaints and Reports as per HPI [facility] Past Medical History Medical History B12 deficiency Degenerative arthritis of knee, bilateral Diabetes mellitus last A1c in chart 05/17/19 7.0 Elevated alkaline phosphatase level GERD (gastroesophageal reflux disease) Kidney stones Right rotator cuff tear Skin cancer Weight loss Surgical History Surgical History History of arthroscopy of right shoulder Hx of cataract surgery (~2017) S/P right rotator cuff repair Family History Family History Mother Hypertension Family history of heart disease in male family member before age 55 Family history of congestive heart failure, Onset Age: 89 Cerebrovascular accident Father Acute myocardial infarction FH myocardial infarction male first degree age known, Onset Age: 59 Hypertension Other Carcinoma of colon Diabetes mellitus Social History Social History Smoking status: Never smoker Second hand tobacco smoke exposure: No Alcohol intake: current Drinks per week: 1 Alcohol use details: 1-2 drinks a month Substance use: never Lack of Transportation: No Lack of Food: Never True Current Housing: I Have Housing Concerned About Future Housing: No Difficulty Paying Gas/Electric Bills: No Difficu
--- NOTE | 2023-03-25 12:08 | ECG_ITS ---
Measurements Intervals [place] Rate: 76 P: 48 MA: 191 QRS: -52 QRSD: 107 T: -5 QT: 379 QTc: 428 Interpretive Statements SINUS RHYTHM LEFT ANTERIOR FASCICULAR BLOCK BORDERLINE T WAVE ABNORMALITY- INFERIOR LEADS BASELINE ARTIFACT- AVF ABNORMAL ECG NO PREVIOUS ECG AVAILABLE FOR COMPARISON Electronically Signed On 03-25-2023 13:14:57 [employer] by Refugio Bautista D.O.
[2023-03-25 13:07] LABS: Basophils Absolute Auto 0.05 K/mm3 (0.00-0.10); Basophils Percent Auto 0.6 % (0.0-1.0); Eosinophils Absolute Auto 0.07 K/mm3 (0.02-0.50); Eosinophils Percent Auto 0.9 % (1.0-6.0); Hematocrit 46.3 % (37.0-46.0); Hemoglobin 15.6 g/dL (12.4-15.3); Immature Granulocyte Absolute 0.04 K/mm3 (0.00-0.00); Immature Granulocyte Percent A 0.5 % (0.0-0.0); Lymphocytes Absolute Auto 1.45 K/mm3 (1.10-4.50); Lymphocytes Percent Auto 17.7 % (18.0-42.0); Mean Corpuscular HGB Conc 33.7 g/dL (32.0-36.0); Mean Corpuscular Hemoglobin 32.2 pg (27.0-31.0); Mean Corpuscular Volume 95.7 fL (78.0-102.0); Mean Platelet Volume 9.8 fl (8.7-11.0); Monocytes Absolute Auto 0.65 K/mm3 (0.10-0.90); Monocytes Percent Auto 7.9 % (2.0-11.0); Neutrophils Absolute Auto 5.9 K/mm3 (1.7-7.2); Neutrophils Percent Auto 72.4 % (50.0-70.0); Platelet Count Result 253 K/mm3 (150-420); Red Blood Count 4.84 M/mm3 (4.70-6.10); Red Cell Distribution Width 11.9 % (11.6-14.4); White Blood Count 8.2 K/mm3 (4.8-10.8)
[2023-03-25 13:20] LABS: INR 0.9; Partial Thromboplastin Time 24.7 SEC (23.90-30.70); Prothrombin Time 10.4 Seconds (9.50-12.10)
[2023-03-25 13:24] LABS: Lactic Acid Reflex 1.7 mmol/L (0.4-2.0)
[2023-03-25 13:30] VITALS: BP 175/74; PULSE 78; RESP 18; O2SAT 96
[2023-03-25 13:33] LABS: Alanine Aminotransferase 17 U/L (16-63); Albumin Level 3.3 g/dL (3.4-5.0); Alkaline Phosphatase 145 U/L (46-116); Anion Gap 9 mmol/L (8-16); Aspartate Amino Transferase < 10 U/L (15-37); Bilirubin,Total 0.6 mg/dL (0.00-1.00); Blood Urea Nitrogen 14 mg/dL (7-18); Calcium 8.9 mg/dL (8.5-10.1); Carbon Dioxide 28 mmol/L (21-32); Chloride 104 mmol/L (98-108); Creatine Kinase 67 U/L (39-308); Estimated CRCL calculation 65 ml/min; Estimated Glomerular Filt Rate > 60; Glucose 222 mg/dL (70-99); NT Pro B Type Natriuretic Pept 535 pg/mL (0-125); Osmolality Calculated 299 mOsm/kg (285-295); Potassium 3.6 mmol/L (3.5-5.1); Sodium 141 mmol/L (136-145); Total Protein 6.5 g/dL (6.4-8.2); Troponin I 11.5 ng/L (0.00-60.4)
[2023-03-25] MEDS: ASPIRIN 81 MG CHEWABLE TABLET 324 MG PO (13:43)
[2023-03-25] MEDS: HEPARIN SODIUM 5,000 UNITS/ML VIAL 6500 UNITS IV PUSH (13:46)
[2023-03-25] MEDS: HEPARIN SOD/D5W 100 UNITS/ML 25,000 UNITS/250 ML BAG 14 UNITS IV CONT (13:47)
[2023-03-25 13:53] VITALS: BP 180/72; PULSE 72; RESP 18; O2SAT 96
--- NOTE | 2023-03-25 13:53 | PC.NURSE ---
pt and brother are aware of plan of care. nad noted at this time. pt has iv medications infusing as ordered without difficulty. friend at bedside to get keys for vehicle. will continue to monitor.
--- NOTE | 2023-03-25 14:08 | PC.NURSE ---
REPORT TO AKI MALDONADO AT [facility] OR
[2023-03-25 14:19] VITALS: BP 182/83; PULSE 77; RESP 18; O2SAT 95
== END 2023-03-25 14:41 | disposition short-term general hospital (02) ==
PROVIDERS: Emergency Provider Internal Medicine Critical Care Medicine; PCP Internal Medicine
DX: I99.8 Other disorder of circulatory system (principal); E11.65 Type 2 diabetes mellitus with hyperglycemia; I10 Essential (primary) hypertension; Z86.73 Personal history of transient ischemic attack (TIA), and cerebral infarction without residual deficits
CPT/HCPCS: 36415; 80053; 82550; 83605; 83880; 84484; 85025; 85610; 85730; 93005; 93923; 96365; 99285; A9270; J1644

== ENCOUNTER 2023-06-07 14:24 | Emergency (ER) | payer MEDICARE, SELFPAY ==
[2023-06-07 14:26] VITALS: BP 142/69; PULSE 77; RESP 16; TEMP 36.8; O2SAT 97
[2023-06-07] MEDS: LORATADINE 10 MG TABLET PO (14:59)
[2023-06-07] MEDS: FAMOTIDINE 20 MG TABLET PO (14:59)
[2023-06-07 15:01] VITALS: BP 133/88; PULSE 73; RESP 15; O2SAT 96
--- NOTE | 2023-06-07 16:03 | ED.ALLEREA ---
HPI - Allergic Reaction General Chief complaint: Allergic Reaction Stated complaint: INT TONGUE SWELLING Time Seen by Provider: 06/07/23 14:32 History of Present Illness HPI narrative: Patient presents here with tongue swelling and throat swelling, similar episode happened years ago which was thought to be due to lisinopril and stoped taking the lisinopril and was placed on telmisartan instead. 2 weeks ago started noticing some swelling of his tongue, it got better after a day so he thought nothing of it, but around 4 this morning started noticing swelling again, to the point where he was not able to speak coherently, took a Benadryl and was having trouble swallowing the pill due to how big his tongue was, and several hours later felt like the symptoms are starting to resolve. currently tongue still feels larger than usual but overall better than this morning. Related Data Home Medications Medication Instructions Recorded Confirmed aspirin 81 mg tablet 81 mg PO DAILY 04/02/23 04/02/23 atorvastatin 40 mg tablet 40 mg PO HS 04/02/23 04/02/23 citalopram 20 mg tablet 20 mg PO HS 04/02/23 04/02/23 glipizide 5 mg tablet 5 mg PO BID 04/02/23 04/02/23 Allergies Allergy/AdvReac Type Severity Reaction Status Date / Time lisinopril Allergy Severe SWELLING Verified 06/07/23 14:38 OF THROAT AND TONGUE Review of Systems Review of Systems: CONST: No fever. HEENT: Tongue swelling C/V: No chest pain RESP: No cough GI: no nausea or vomiting : No dysuria. M/S: No joint pain. SKIN: No rash. NEURO: [No headache or focal numbness or weakness] PSYCH: [No depression] [facility] Past Medical History Medical History B12 deficiency Degenerative arthritis of knee, bilateral Diabetes mellitus last A1c in chart 05/17/19 7.0 Elevated alkaline phosphatase level GERD (gastroesophageal reflux disease) Kidney stones Right rotator cuff tear Skin cancer Weight loss Surgical History Surgical History History of arthroscopy of right shoulder Hx of cataract surgery (~2016) S/P right rotator cuff repair Family History Family History Mother Hypertension Family history of heart disease in male family member before age 55 Family history of congestive heart failure, Onset Age: 89 Cerebrovascular accident Father Acute myocardial infarction FH myocardial infarction male first degree age known, Onset Age: 59 Hypertension Other Carcinoma of colon Diabetes mellitus Social History Social History Smoking status: Never smoker Second hand tobacco smoke exposure: No Alcohol intake: current Drinks per week: 1 Alcohol use details: 1-2 drinks a month Substance use: never Substance use type: does not use Lack of Transportation: No Lack of Food: Never True Current Housing: I Have Housing Concerned About Future Housing: No Difficulty Paying Gas/Electric Bills: No Difficulty Paying for Meds: No Currently Unemployed: No Education: High School Diploma/GED Difficulty w/ Childcare or Family Care: No Living arrangements: alone Spiritual care concerns: No Exam Narrative: EXAMINATION OF ORGAN SYSTEMS/BODY AREAS: Constitutional: Vital signs per nursing GENERAL:[No acute distress, non-toxic appearing.] HEAD: Normal with no signs of head trauma. EYES: EOMI, conjunctiva normal ENT: clear voice, swelling of tongue, no obvious swelling of larynx or lips . No stridor LUNGS: Nonlabored breathing. clear to auscultation bilaterally. HEART: [Regular rate and rhythm] ABD: [Soft], [nontender to palpation] EXT: Normal range of motion SKIN: [No rashes or lesions.] NEURO: [Alert and oriented x 3. No gross focal sensory or strength deficits.] PSYCH: Normal affect
== END 2023-06-07 15:54 | disposition home or self-care (01) ==
PROVIDERS: Emergency Provider Emergency Medicine; PCP Internal Medicine
DX: T78.3XXA Angioneurotic edema, initial encounter (principal); E11.9 Type 2 diabetes mellitus without complications; E53.8 Deficiency of other specified B group vitamins; K21.9 Gastro-esophageal reflux disease without esophagitis; M17.0 Bilateral primary osteoarthritis of knee; Z98.49 Cataract extraction status, unspecified eye; Z87.442 Personal history of urinary calculi; Z85.828 Personal history of other malignant neoplasm of skin; Z79.84 Long term (current) use of oral hypoglycemic drugs
CPT/HCPCS: 99283; A9270; J8540

== ENCOUNTER 2023-10-14 13:46 | Outpatient (CLI) | payer MEDICARE, SELFPAY ==
--- NOTE | ~2023-10-14 | XR_ITS ---
EXAM: XR ankle LT min 3V, XR foot LT min 3V DATE: 10/14/2023 14:20 HISTORY: M25.572 Pain in left ankle and joints of left foot, no injury. COMPARISON: None available. FINDINGS: Decreased mineralization. No fracture or dislocation. No lytic or blastic lesion. Mild deg enerative change at the tibiotalar joint, first MTP joint, and multiple joints in the midfoot and toe s. Os navicularis. Focal ossification overlying the mid plantar fascia. High arch. No erosion or yenni osteal change. Mild soft tissue swelling over the medial ankle. Scattered vascular and soft tissue ca lcifications. 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 Likely chronic plantar fasciitis . Medial ankle soft tissue swelling, correlate clinically for signs of edema/infection. Reviewed, dictated and finalized at location K. 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 Likely chr onic plantar fasciitis. Medial ankle soft tissue swelling, correlate clinically for signs of edema/infection.
== END 2023-10-14 13:47 | disposition home or self-care (01) ==
PROVIDERS: PCP Internal Medicine; Visit Provider Physician Assistant
DX: M19.072 Primary osteoarthritis, left ankle and foot (principal); M25.472 Effusion, left ankle
CPT/HCPCS: 73610; 73630

== ENCOUNTER 2023-12-12 14:50 | Emergency (ER) | payer MEDICARE, SELFPAY ==
--- NOTE | ~2023-12-12 | CT_ITS ---
CT facial bones wo con Ordering provider: Ramiro Bains APRN History: . fall, periorbital ecchymosis . Comparison: None. Technique: Thin slice axial CT of the facial bones was performed without contrast. Coronal and sagit renee reformatted images were also obtained. . Automated exposure control and iterative reconstruction technique were employed. The dose-length product was 465.57 mGy-cm. FINDINGS: PARANASAL SINUSES: Well aerated. Mild left nasal septal deviation. BONES: No facial fracture including no nasal bone fracture. ORBITS AND SUPERFICIAL SOFT TISSUES: The optic globes and orbits are normal. The superficial soft tis sues are normal. VISUALIZED MASTOIDS: Well aerated. LIMITED VISUALIZED BRAIN PARENCHYMA: Normal. IMPRESSION: No facial fracture. Reviewed, dictated and finalized at location A. IMPRESSION: No facial fracture.
[2023-12-12 14:54] VITALS: BP 151/79; PULSE 82; RESP 16; TEMP 36.7; O2SAT 96
--- NOTE | 2023-12-12 16:49 | ED.EYEPROB ---
HPI - Eye Problem General Chief complaint: Eye Problems Stated complaint: Eye Swelling Time Seen by Provider: 12/12/23 16:35 Source: patient Mode of arrival: ambulatory Limitations: no limitations History of Present Illness HPI Narrative: Tony is a 68-year-old male patient presenting to the emergency room today with complaints of bilateral eye swelling. Reports that the swelling started this morning. [place] Has some discomfort over the nasal bone and scabbing over the forehead without redness or swelling. Has swelling to the bilateral upper eyelids and slight swelling to the right lateral lower eyelid. Redness /ecchymosis noted. He denies any loss of consciousness when hitting his forehead. Denies current headache or any visual changes Related Data Home Medications Medication Instructions Recorded Confirmed aspirin 81 mg tablet 81 mg PO DAILY 04/02/23 09/08/23 atorvastatin 40 mg tablet 40 mg PO HS 04/02/23 09/08/23 citalopram 20 mg tablet 20 mg PO HS 04/02/23 09/08/23 Allergies Allergy/AdvReac Type Severity Reaction Status Date / Time lisinopril Allergy Severe SWELLING Verified 09/07/23 08:08 OF THROAT AND TONGUE Review of Systems Review of Systems: Pertinent positives per HPI. Patient denies any fever, chills, rash, headache, visual changes, dizziness, cough, runny nose, sore throat, shortness of breath, chest pain, palpitations, nausea, vomiting, diarrhea, constipation, abdominal pain, or any urinary issues. [facility] Past Medical History Medical History B12 deficiency Degenerative arthritis of knee, bilateral Diabetes mellitus last A1c in chart 05/17/19 7.0 Elevated alkaline phosphatase level GERD (gastroesophageal reflux disease) Kidney stones Right rotator cuff tear Skin cancer Weight loss Surgical History Surgical History History of arthroscopy of right shoulder Hx of cataract surgery (~2017) S/P right rotator cuff repair Family History Family History Mother Hypertension Family history of heart disease in male family member before age 55 Family history of congestive heart failure, Onset Age: 89 Cerebrovascular accident Father Acute myocardial infarction FH myocardial infarction male first degree age known, Onset Age: 59 Hypertension Other Carcinoma of colon Diabetes mellitus Social History Social History Smoking status: Never smoker Second hand tobacco smoke exposure: No Alcohol intake: current Drinks per week: 1 Alcohol use details: 1-2 drinks a month Substance use: never Substance use type: does not use Lack of Transportation: No Lack of Food: Never True Current Housing: I Have Housing Concerned About Future Housing: No Difficulty Paying Gas/Electric Bills: No Difficulty Paying for Meds: No Currently Unemployed: No Education: High School Diploma/GED Difficulty w/ Childcare or Family Care: No Living arrangements: alone Spiritual care concerns: No Comments At the time of my signature, I reviewed and agree with the nursing past medical, surgical, social, and family history. There is no relevant family history pertinent to the patient complaint. Exam Narrative: General: Well-developed, well nourished, in no apparent distress Head: Normocephalic, scabbed wound without redness to the mid forehead Eyes: Pupils equally round and reactive to light bilaterally, EOM intact, sclera and conjunctive clear, no discharge, swelling/bruising/redness to bilateral upper eyelids Ears: TMs intact and clear, ear canals clear, no drainage, grossly hearing normal. Nose: Nares patent, no discharge, no inflammation, no sinus tenderness. Mouth:
== END 2023-12-12 18:20 | disposition home or self-care (01) ==
PROVIDERS: Emergency Provider Nurse Practitioner Family; PCP Internal Medicine
DX: S00.11XA Contusion of right eyelid and periocular area, initial encounter (principal); S00.12XA Contusion of left eyelid and periocular area, initial encounter; W19.XXXA Unspecified fall, initial encounter; E53.8 Deficiency of other specified B group vitamins; E11.9 Type 2 diabetes mellitus without complications; K21.9 Gastro-esophageal reflux disease without esophagitis
CPT/HCPCS: 70486; 99284

== ENCOUNTER 2024-03-23 09:33 | Outpatient (CLI) | payer MEDICARE, SELFPAY ==
[2024-03-23 11:11] LABS: Alanine Aminotransferase 14 U/L (6-50); Albumin Level 4.3 g/dL (3.5-5.1); Alkaline Phosphatase 120 U/L (38-126); Anion Gap 9 mmol/L (4-12); Aspartate Amino Transferase 20 U/L (17-59); Blood Urea Nitrogen 25 mg/dL (9-20); Calcium 9.1 mg/dL (8.4-10.2); Carbon Dioxide 28 mmol/L (22-30); Chloride 102 mmol/L (98-107); Estimated Glomerular Filt Rate > 60; Glucose 150 mg/dL (65-110); Potassium 3.8 mmol/L (3.4-5.0); Sodium 139 mmol/L (137-145)
[2024-03-23 11:47] LABS: Hemoglobin A1C 7.5 % (<5.7)
== END 2024-03-23 09:34 | disposition home or self-care (01) ==
LOC: ANHLAB 09:34
PROVIDERS: PCP Internal Medicine; Visit Provider Physician Assistant
DX: E11.9 Type 2 diabetes mellitus without complications (principal); E53.8 Deficiency of other specified B group vitamins
CPT/HCPCS: 36415; 80053; 82607; 83036

== ENCOUNTER 2024-08-16 09:53 | Outpatient (CLI) | payer MEDICARE, SELFPAY ==
--- OUTSIDE RECORDS SUMMARY | 2024-08-16 10:48 | XMS_ITS | Clinical Summary ---
Author Organization [facility], formerly [facility] Address [address] [place] [address] Phone Care Team Providers Care Diabetologist Name Role Phone Unavailable Primary Care Provider Unavailabl e Allergies Active Allergy Reactions Criticality Noted Date Comments Lisinopril Angioedema High 03/25/2023 Medications citalopram (CeleXA) 20 mg tablet Take 20 mg by mouth daily at bedtime. Active diltiaZEM (CARDIZEM LA) 240 mg Extended Release 24 hour tablet Take 240 mg by mouth daily. Active empagliflozin (Jardiance) 25 mg tablet Take 25 mg by mouth daily in the morning. Active glipiZIDE (GLUCOTROL) 5 mg tablet Take 5 mg by mouth 2 times daily with meals. Active semaglutide (Rybelsus) 7 mg Tablet Take 7 mg by mouth daily. Active omeprazole (PriLOSEC) 40 mg Capsule, Delayed Release(E.C.) Take 40 mg by mouth daily. Active telmisartan (MICARDIS) 80 mg Tablet Take 80 mg by mouth daily. Active atorvastatin (LIPITOR) 40 mg tablet Take 1 Tablet (40 mg) by mouth daily at bedtime. 30 Tablet 03/27/2023 4:26 PM STONE SETTER 03/27/2023 Active aspirin (ECOTRIN EC) 81 mg Tablet, Delayed Release (E.C.) Starting 03/28, Take 1 Tablet (81 mg) by mouth daily. 30 Tablet 03/27/2023 4:26 PM STONE SETTER 03/28/2023 Active HYDROcodone-kassie taminophen (NORCO) 5-325 mg tabletIndicatio ns:Claudication in peripheral vascular disease Take 1 Tablet by mouth every 4 hours as needed for Pain, Moderate. 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): Left leg Abnormal EKG 03/26/2023 Type 2 diabetes mellitus wit hout complication, without long-term current use of insulin 03/26/2023 Preoperative cardiovascular examination 03/26/20 Claudication in peripheral vascular disease 01/2023 Type 2 diabetes mellitus wit h diabetic peripheral angiopathy without gangrene 03/25/2023 Benign hypertension 03/25/2023 MANJIT on CPAP 03/25/2023 Major depression 03/25/2023 Hypoxemia 03/25/2023 Severe peripheral arterial disease 03/25/2023 Encounters Date Type Department Care Team Description 06/29/2024 Orders Only [facility] Tunnel Drier Operator [address] [address] Celestino Ahumada MD Bypass graft stenosis, subsequent encounter (Primary Dx); Severe peripheral arterial disease 06/09/2024 External Device Data STL ABSTRACTION Provider, Abstract 05/31/2024 External Device Data STL ABSTRACTION Provider, Abstract from Last 3 Months Social History Tobacco Use Types Packs/Day Years Used Date Smoking Tobacco: Never Tobacco Cessation:Counseling Given: Not Answered Feeling Safe Answer Date Recorded Are you in a relationship wi th someone who hurts you emotionally and/or physically? No 03/31/2024 Food Insecurity Answer Date Recorded Social/Environmental Concerns No concerns Transportation Needs Answer Date Record ed Social/Environmental Concerns No concerns Housing Stability Answer Date Recorded Social/Environmental Concerns No concerns Utility Needs Answer Date Recorded Social/Environmental Concerns No concerns Sex and Gender Information Value Date Recorded Sex Assigned at Not on file Legal Sex Male 1:24 PM STONE SETTER Gender Identity Not on file Sexual Orientation Not on file Last Filed Vital Signs Vital Sign Reading Time Taken Comments Blood Pressure 155/73 03/31/2024 12:15 PM STONE SETTER Pulse 73 03/31/2024 12:30 PM STONE SETTER Temperature 36.6 C (97.9 F) 03/31/2024 6:09 AM STONE SETTER Respiratory Rate 21 03/31/2024 12:30 PM STONE SETTER Oxygen Saturation 94% 03/31/2024 12:30 PM STONE SETTER Inhaled Oxygen Concentration - - Weight 84.8 kg (187 lb) 03/31/2024 6:09 AM STONE SETTER Height 177.8 cm (5' 10 ) 03/31/2024 6:09 AM STONE SETTER Body Mass Index 26.83 03/31/2024 6:09 AM STONE SETTER Plan of Treatment Upcoming Encounters Date Type Department Care Team (Late st Contact Info) Description 09/02/2024 1:00 PM CDT Appointment [facility] Blood Flow [address] [place] [address] Celestino Ahumada MD [address] [place] [address] 09/02/2024 2:00 PM CDT Appointment [facility] Blood Flow [address] [place] [address] Celestino Ahumada MD [address] [place] [address] 09/02/2024 2:30 PM CDT Office Visit [facility] Tunnel Drier Operator [facility] [address] [place] [address] Celestino Ahumada MD [address] [facility] [place] [address] Health Maintenance Due Date Last Done Comments DIABETES ANNUAL FOOT EXAM 02/13/1972 DIABETES MICROALBUMIN ANNUAL SCREEN 02/13/1972 DTAP/TDAP/TD VACCINES (1 - Tdap) 1973 PNEUMOCOCCAL VACCINE 50+ YEARS (1 of 2 - PCV) 02/12/19 73 COLORECTAL SCREENING 1999 Colorectal Cancer Screening 1999 FIT-DNA Q 3 years 1999 FIT/FOBT Q 1 year 1999 Flex Sig/CT Colonography Q 5 years 1999 ZOSTER VACCINE (1 of 2) 02/13/2004 RSV VACCINE (60+ or ) (1 - Risk 60-74 years 1-dose series) 2014 DIABETES HBA1C Q 6 MONTHS 09/23/2023 03/25/2023 INFLUENZA VACCINE (#1) 2023 DIABETES ANNUAL RETINAL EXAM 03/26/2024 03/26/2023 LDL CHOLESTEROL ANNUAL 03/26/2024 03/26/2023 Medicare Advantage (PR) Prev entative Visit/Annual Wellness Visit 05/18/2024 Medical Devices Implanted Type Area Speedometer Mechanic Device Identifier Shelf Expiration Date Model / Serial / Lot Clip Ligating Horizon Sm Ti [id number] - Csc - [id number] Implanted:Qty: 5 on 03/30/2023 by Celestino Ahumada MD at [facility] Clip Left: Leg [employer] 10/07/2027 [id number] / / [id number] Clip Ligating Horizon Med Ti [id number] - Csc - [id number] Implanted:Qty: 2 on 03/30/2023 by Celestino Ahumada MD at [facility] Clip Left: Leg [employer]LE[employer]- [employer]URE SYS 01/14/2028 [id number] / / [id number] Hemostatic Surgiflo 8ml W/ Thrombin 2994 - [id number] Implanted:Qty: 1 on 03/30/2023 by Celestino Ahumada MD at [facility] Hemostatic Left: Leg [employer] 11/15/2023 [id number] / / [id number] Procedures Procedure Name Priority Date/Time Associated Diagnosis Comments LIPID PANEL Routine 03/26/2023 1:45 AM STONE SETTER HEMOGLOBIN A1C Routine 03/25/2023 4:30 PM STONE SETTER from Last 3 Months or Most Recently Relevant to Health Maintenance Results * (ABNORMAL) LIPID PANEL (03/26/2023 1:45 AM STONE SETTER) CHOLESTEROL 115 <200 mg/dL 03/26/2023 3:36 AM [facility] Pulse 8 [facility] TRIGLYCERIDE 129 <150 mg/dL 03/26/2023 3:36 AM [facility] Pulse 8 [facility] HDL 37(L) 40 - 59 mg/dL 03/26/2023 3:36 AM [facility] Pulse 8 [facility] LDL CALCULATED 52 <100 mg/dL 03/26/2023 3:36 AM [facility] Pulse 8 [facility] NON-HDL CHOLESTEROL 78 <130 mg/dL 03/26/2023 3:36 AM [facility] Pulse 8 [facility] Blood Venipuncture / Unknown 03/26/2023 1:45 AM STONE SETTER 03/26/2023 2:28 AM STONE SETTER Narrative [facility] - 03/26/2023 3:36 AM STONE SETTER TOTAL CHOLESTEROL mg/dL Desirable <200 Borderline high 200-239 High >=240 TRIGLYCERIDES mg/dL Normal <150 Borderline high 150-199 High 200-499 Very high >=500 HDL CHOLESTEROL mg/dL Low <40 Normal 40-59 Desirable >=60 NON HDL CHOLESTEROL mg/dL Optimal <130 Near Optimal 130-159 Borderline High 160-189 Very High >=190 CALCULATED LDL mg/dL LDL <70, OPTIMAL if have Atherosclerotic cardiovascular disease (ASCVD) or intermediate or higher (>7.5%) 10 year risk of ASCVD including most adults with diabetes. LDL <100, Optimal in adult patients with low (<7.5%) 10 year ASCVD risk LDL 100-160, Suboptimal LDL >160, High LDL >190, Very high ATPIII Guidelines Reference Ranges for Lipid Panels (NCEP/AMA) . us Nahum Krishnamurthy MD CHEMISTRY ORDERABLES Final Resu lt [facility] Pulse 8 [facility]# [id number] [address] [place] [address] * (ABNORMAL) HEMOGLOBIN A1C (03/25/2023 4:30 PM STONE SETTER) HEMOGLOBIN A1C 7.9(H) <5.7 % 03/25/2023 9:15 PM STONE SETTER [facility] EST. AVG GLUCOSE, A1C 180 mg/dL 03/25/2023 9:15 PM STONE SETTER [facility] Blood Venipuncture / Unknown 03/25/2023 4:30 PM STONE SETTER 03/25/2023 4:37 PM STONE SETTER Narrative [facility] - 03/25/2023 9:15 PM STONE SETTER HGB A1C INTERPRETATION NORMAL: <5.7% PRE-DIABETES: 5.7 - 6.4% DIABETES: 6.5% OR GREATER Nahum Krishnamurthy MD CHEMISTRY ORDERABLES Final Resu lt [facility] Pulse 8 [facility] CLIA# [id number] [place] [address] from Last 3 Months or Most Recently Relevant to Health Maintenance Insurance [employer] CHOICE PPO [facility] RX [employer] RX Member Subscriber Plan / Payer (Ef fective for All Dates) Name:Tony Pelayoolph Relation to Subscriber:Self Name:Tony Pelayoolph Payer ID:Not on file Group ID:[id number] Type:RX Commercial Address: [address] Advance Directives For more information, please contact: [phone] * Full Code (Latest Code Status on File) Date Activated Date Inactivated Comments 03/31/2024 5:22 AM 03/31/2024 4:07 PM * Full Code Date Activated Date Inactivated Comments 03/30/2023 4:48 PM 04/02/2023 4:56 PM * Full Code Date Activated Date Inactivated Comments 03/25/2023 7:39 PM 03/27/2023 7:29 PM
--- OUTSIDE RECORDS SUMMARY | 2024-08-16 10:49 | XMS_ITS | Patient Health Record ---
Author Organization [facility] Address [address] [place], [place] [id number] Care Team Providers Care Fashion Coordinator Name Role Phone MARLY MARLEY Unavailable [phone] Adebayo Baker Unavailable Unavailable MERY WOOTEN Unavailable [phone] Allergies Allergen (clinical drug ingredient) Drug/Non Drug Allergy documented on EMR Reaction Allergy Type Onset Date Status lisinopril Lisinopril Unknown Drug Allergy 07/16/2012 acti ve Reason For Referral No Information Medications Medication SIG (Take, Route, Frequency, Duration) Notes Start Date End Date Status clotrimazole 10 MG/ML Topical Cream CUTANEOUS clotrimazole 10 MG/ML Topical CreamOriginal Medicationclotrimazole 10 MG/ML Topical Cream *Reorder from [facility] for eRx and Interaction Alerts* 05/06/2012 Active Vital Signs Height-cm 177.80 cm 11/05/2023 Weight-kg 89.81 kg 11/05/2023 Height 70.00 in 11/05/2023 Weight 198 lbs 11/05/2023 BMI 28.41 kg/m2 11/05/2023 Encounters Encounter Location Date Provider Diagnosis [address] [id number] 08/04/2024 MARLEYPEG FISHERSHUN Ingrowing nail L60.0 ; Atherosclerosis of [place] arteries of extremities with intermittent claudication, bilateral legs I70.213 ; Type 2 diabetes mellitus with other circulatory complications E11.59 ; Pain in left toe(s) M79.675 and Pain in right toe(s) M79.[address] [id number] 09/17/2023 MERY WOOTEN Other hammer toe(s) (acquired), right foot M20.41 ; Tinea unguium B35.1 ; Other hammer toe(s) (acquired), left foot M20.42 ; Pain in right toe(s) M79.674 ; Pain in left toe(s) M79.675 and Unspecified atherosclerosis of [place] arteries of extremities, bilateral legs I70.203 [facility] [address] [place], [place] [id number] 10/15/2023 MERY WOOTEN Plantar 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 ; Short Achilles tendon (acquired), left ankle M67.02 ; Localized edema R60.0 and Pain in left foot M79.[address] [id number] 11/05/2023 MERY WOOTEN Plantar 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 ; Short Achilles tendon (acquired), left ankle M67.02 ; Localized edema R60.0 and Pain in left foot M79.[address] [id number] 11/26/2023 MERY WOOTEN Other hammer toe(s) (acquired), right foot M20.41 ; Tinea unguium B35.1 ; Other hammer toe(s) (acquired), left foot M20.42 ; Pain in right toe(s) M79.674 ; Pain in left toe(s) M79.675 and Unspecified atherosclerosis of [place] arteries of extremities, bilateral legs I70.203 [facility] [address] [id number] 01/28/2024 MERY WOOTEN Other hammer toe(s) (acquired), right foot M20.41 ; Tinea unguium B35.1 ; Other hammer toe(s) (acquired), left foot M20.42 ; Pain in right toe(s) M79.674 ; Pain in left toe(s) M79.675 and Unspecified atherosclerosis of [place] arteries of extremities, bilateral legs I70.[address] [id number] 04/07/2024 MERY WOOTEN Other hammer toe(s) (acquired), right foot M20.41 ; Tinea unguium B35.1 ; Other hammer toe(s) (acquired), left foot M20.42 ; Pain in right toe(s) M79.674 ; Pain in left toe(s) M79.675 and Unspecified atherosclerosis of [place] arteries of extremities, bilateral legs I70.[address] [id number] 06/23/2024 MARLEY LUKE Tinea unguium B35.1 ; Pain in right toe(s) M79.674 ; Pain in left toe(s) M79.675 ; Atherosclerosis of [place] arteries of extremities with intermittent claudication, bilateral legs I70.213 and Type 2 diabetes mellitus with other circulatory complications E11.59 Assessments Encounter Date Diagnosis (ICD Code) Assessment Notes Treatment Notes Treatment Clinical Notes Section Notes 09/17/2023 Tinea unguium (ICD-10 - B35.1) Aseptic debridement of elongated thickened nails x 10 using sterile nippers, nails were debrided in length and thickness by 30% utilizing a nail nipper without incident. The patient was educated regarding all treatment options that include topical and oral antifungal treatments. I discussed the options of taking a sample of the nail to confirm diagnosis. Nail clippings were not sent for pathology analysis. The patient was educated why and how the fungal infection evolved in their feet and the patient was given information regarding how to prevent further infection. The patient was told to keep feet dry and change socks. The patient was told to be careful with old shoes and excessive sweating. The patient was educated regarding both OTC and prescription treatments. 09/17/2023 Other hammer toe(s) (acquired), right foot (ICD-10 - M20.41) The patient was educated regarding how to mechanically stabilize their deformity. The patient was given education about shoe recommendations specific for the condition. The patient was educated about custom orthotics and how appropriate shoes and orthotics can prevent further worsening of the deformity. The patient was educated about how bad shoe habits can worsen the condition. NSAIDS, P.T., injections and other conservative treatments were discussed. Both surgical and non surgical treatments were discussed, but conservative options were emphasized. 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 Encouraged patient to begin with calf and achilles tendon stretching exercise regimen to help accomodate for high plantar peak pressures and manage tightness. 10/15/2023 Plantar fascial fibromatosis (ICD-10 - M72.2) I discussed anti-inflammatory treatment options and various means of pronation control with the patient. I educated the patient on icing and stretching, supportive shoegear, and the use of orthotic devices. Following skin prep, a total of 3 ccs of a 1.5-1-0.5 mix of 1% lidocaine plain, dexamethasone sodium phosphate and kenalog was injected into the patients left plantar fascia. The patient was dispensed and fitted with over the counter power step pinnacle arch supports. The patient was educated on their use and effect. All questions were answered. 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 Encouraged patient to begin with calf and achilles tendon stretching exercise regimen to help accomodate for high plantar peak pressures and manage tightness. 11/05/2023 Plantar fascial fibromatosis (ICD-10 - M72.2) I discussed anti-inflammatory treatment options and various means of pronation control with the patient. I educated the patient on icing and stretching, supportive shoegear, and the use of orthotic devices. Continue with use of power step pinnacle inserts daily. 11/26/2023 Tinea unguium (ICD-10 - B35.1) Aseptic debridement of elongated thickened nails x 10 using sterile nippers, nails were debrided in length and thickness by 30% utilizing a nail nipper without incident. The patient was educated regarding all treatment options that include topical and oral antifungal treatments. I discussed the options of taking a sample of the nail to confirm diagnosis. Nail clippings were not sent for pathology analysis. The patient was educated why and how the fungal infection evolved in their feet and the patient was given information regarding how to prevent further infection. The patient was told to keep feet dry and change socks. The patient was told to be careful with old shoes and excessive sweating. The patient was educated regarding both OTC and prescription treatments. 11/26/2023 Other hammer toe(s) (acquired), right foot (ICD-10 - M20.41) The patient was educated regarding how to mechanically stabilize their deformity. The patient was given education about shoe recommendations specific for the condition. The patient was educated about custom orthotics and how appropriate shoes and orthotics can prevent further worsening of the deformity. The patient was educated about how bad shoe habits can worsen the condition. NSAIDS, P.T., injections and other conservative treatments were discussed. Both surgical and non surgical treatments were discussed, but conservative options were emphasized. 01/28/2024 Other hammer toe(s) (acquired), right foot (ICD-10 - M20.41) The patient was educated regarding how to mechanically stabilize their deformity. The patient was given education about shoe recommendations specific for the condition. The patient was educated about custom orthotics and how appropriate shoes and orthotics can prevent further worsening of the deformity. The patient was educated about how bad shoe habits can worsen the condition. NSAIDS, P.T., injections and other conservative treatments were discussed. Both surgical and non surgical treatments were discussed, but conservative options were emphasized. 01/28/2024 Tinea unguium (ICD-10 - B35.1) Aseptic debridement of elongated thickened nails x 10 using sterile nippers, nails were debrided in length and thickness by 30% utilizing a nail nipper without incident. The patient was educated regarding all treatment options that include topical and oral antifungal treatments. I discussed the options of taking a sample of the nail to confirm diagnosis. Nail clippings were not sent for pathology analysis. The patient was educated why and how the fungal infection evolved in their feet and the patient was given information regarding how to prevent further infection. The patient was told to keep feet dry and change socks. The patient was told to be careful with old shoes and excessive sweating. The patient was educated regarding both OTC and prescription treatments. 04/07/2024 Tinea unguium (ICD-10 - B35.1) Aseptic debridement of elongated thickened nails x 10 using sterile nippers, nails were debrided in length and thickness by 30% utilizing a nail nipper without incident. The patient was educated regarding all treatment options that include topical and oral antifungal treatments. I discussed the options of taking a sample of the nail to confirm diagnosis. Nail clippings were not sent for pathology analysis. The patient was educated why and how the fungal infection evolved in their feet and the patient was given information regarding how to prevent further infection. The patient was told to keep feet dry and change socks. The patient was told to be careful with old shoes and excessive sweating. The patient was educated regarding both OTC and prescription treatments. 04/07/2024 Other hammer toe(s) (acquired), right foot (ICD-10 - M20.41) The patient was educated regarding how to mechanically stabilize their deformity. The patient was given education about shoe recommendations specific for the condition. The patient was educated about custom orthotics and how appropriate shoes and orthotics can prevent further worsening of the deformity. The patient was educated about how bad shoe habits can worsen the condition. NSAIDS, P.T., injections and other conservative treatments were discussed. Both surgical and non surgical treatments were discussed, but conservative options were emphasized. 06/23/2024 Tinea unguium (ICD-10 - B35.1) NAIL DEBRIDEMENT: Nails 1-5 Bilateral were debrided extensively with nail nippers and emery board, reducing length and girth to pink healthy tissue with any subungual debris and necrotic tissue removed 08/04/2024 Atherosclerosis of [place] arteries of extremities with intermittent claudication, bilateral legs (ICD-10 - I70.213) Patient has CFT<5s and palpable pulse 08/04/2024 Ingrowing nail (ICD-10 - L60.0) Slant Back Toenail: Following skin prep, the offending nail border was debrided without anesthesia. The patient was instructed on monitoring for infection or recurrence. 08/04/2024 Type 2 diabetes mellitus with other circulatory complications (ICD-10 - E11.59) Diabetic Foot Care: The patient was educated on diabetes and the lower extremity. The patient was instructed to check his feet daily to report any problems or signs of infection immediately. The patient was provided written information on Diabetic Foot Care as well as the Amputation Prevention Guide. 06/23/2024 Pain in right toe(s) (ICD-10 - M79.674) 04/07/2024 Other hammer toe(s) (acquired), left foot (ICD-10 - M20.42) 01/28/2024 Other hammer toe(s) (acquired), left foot (ICD-10 - M20.42) 11/26/2023 Other hammer toe(s) (acquired), left foot (ICD-10 - M20.42) 10/15/2023 Localized edema (ICD-10 - R60.0) 11/05/2023 Localized edema (ICD-10 - R60.0) 09/17/2023 Other hammer toe(s) (acquired), left foot (ICD-10 - M20.42) 09/17/2023 Pain in right toe(s) (ICD-10 - M79.674) 11/05/2023 Pain in left foot (ICD-10 - M79.672) 10/15/2023 Pain in left foot (ICD-10 - M79.672) 11/26/2023 Pain in right toe(s) (ICD-10 - M79.674) 01/28/2024 Pain in right toe(s) (ICD-10 - M79.674) 04/07/2024 Pain in right toe(s) (ICD-10 - M79.674) 06/23/2024 Pain in left toe(s) (ICD-10 - M79.675) 08/04/2024 Pain in left toe(s) (ICD-10 - M79.675) 06/23/2024 Atherosclerosis of [place] arteries of extremities with intermittent claudication, bilateral legs (ICD-10 - I70.213) 08/04/2024 Pain in right toe(s) (ICD-10 - M79.674) 04/07/2024 Pain in left toe(s) (ICD-10 - M79.675) 01/28/2024 Pain in left toe(s) (ICD-10 - M79.675) 11/26/2023 Pain in left toe(s) (ICD-10 - M79.675) 09/17/2023 Pain in left toe(s) (ICD-10 - M79.675) 09/17/2023 Unspecified atherosclerosis of [place] arteries of extremities, bilateral legs (ICD-10 - I70.203) Patient educated on risks and aggravating factors of PVD, including conservative treatment options such as a diet and exercise regimen to aid in slowing progression of vascular disease 11/26/2023 Unspecified atherosclerosis of [place] arteries of extremities, bilateral legs (ICD-10 - I70.203) Patient educated on risks and aggravating factors of PVD, including conservative treatment options such as a diet and exercise regimen to aid in slowing progression of vascular disease 04/07/2024 Unspecified atherosclerosis of [place] arteries of extremities, bilateral legs (ICD-10 - I70.203) Patient educated on risks and aggravating factors of PVD, including conservative treatment options such as a diet and exercise regimen to aid in slowing progression of vascular disease 01/28/2024 Unspecified atherosclerosis of [place] arteries of extremities, bilateral legs (ICD-10 - I70.203) Patient educated on risks and aggravating factors of PVD, including conservative treatment options such as a diet and exercise regimen to aid in slowing progression of vascular disease 06/23/2024 Type 2 diabetes mellitus with other circulatory complications (ICD-10 - E11.59) Diabetic Foot Care: The patient was educated on diabetes and the lower extremity. The patient was instructed to check his feet daily to report any problems or signs of infection immediately. The patient was provided written information on Diabetic Foot Care as well as the Amputation Prevention Guide. Plan Of Treatment Next Appt Details Provider Name:SANGEETA KAUFMAN, 09/01/2024 01:30:00 PM, [address] [place] [address], [phone], Insurance Providers Payer Name Payer Address Payer Phone Subscriber Number Group Number Insured Name Patient Relationship to Insured Coverage Start Date Coverage End Date [address] [address] [id number] EAMON RANKIN Self - patient is the insured
--- OUTSIDE RECORDS SUMMARY | 2024-08-16 10:49 | XMS_ITS ---
Author Organization [facility] Address [address] [place], [place] [id number] Care Team Providers Care Arts Therapist Name Role Phone MARLY MARLEY Unavailable [phone] Adebayo Baker Unavailable Unavailable Allergies Allergen (clinical drug ingredient) Drug/Non Drug Allergy documented on EMR Reaction Allergy Type Onset Date Status lisinopril Lisinopril Unknown Drug Allergy 07/16/2012 acti ve REASON FOR VISIT Patient presents for at-risk foot care . The patient has painful toenails that are causing difficulty with ambulation and shoegear. The onset is gradual. The patient has diabetes mellitus Medications Medication SIG (Take, Route, Frequency, Duration) Notes Start Date End Date Status clotrimazole 10 MG/ML Topical Cream CUTANEOUS clotrimazole 10 MG/ML Topical CreamOriginal Medicationclotrimazole 10 MG/ML Topical Cream *Reorder from [employer] for eRx and Interaction Alerts* 05/06/2012 Active Encounters Encounter Location Date Provider Diagnosis [address] [id number] 06/23/2024 MARLEY LUKE Tinea unguium B35.1 ; Pain in right toe(s) M79.674 ; Pain in left toe(s) M79.675 ; Atherosclerosis of [place] arteries of extremities with intermittent claudication, bilateral legs I70.213 and Type 2 diabetes mellitus with other circulatory complications E11.59 Assessments Encounter Date Diagnosis (ICD Code) Assessment Notes Treatment Notes Treatment Clinical Notes Section Notes 06/23/2024 Tinea unguium (ICD-10 - B35.1) NAIL DEBRIDEMENT: Nails 1-5 Bilateral were debrided extensively with nail nippers and emery board, reducing length and girth to pink healthy tissue with any subungual debris and necrotic tissue removed 06/23/2024 Pain in right toe(s) (ICD-10 - M79.674) 06/23/2024 Pain in left toe(s) (ICD-10 - M79.675) 06/23/2024 Atherosclerosis of [place] arteries of extremities with intermittent claudication, bilateral legs (ICD-10 - I70.213) 06/23/2024 Type 2 diabetes mellitus with other circulatory complications (ICD-10 - E11.59) Diabetic Foot Care: The patient was educated on diabetes and the lower extremity. The patient was instructed to check his feet daily to report any problems or signs of infection immediately. The patient was provided written information on Diabetic Foot Care as well as the Amputation Prevention Guide. Plan Of Treatment Treatment Notes Assessment Notes Tinea unguium NAIL DEBRIDEMENT: Na ils 1-5 Bilateral were debrided extensively with nail nippers and emery board, reducing length and girth to pink healthy tissue with any subungual debris and necrotic tissue removed Type 2 diabetes mellitus wit h other circulatory complications Diabetic Foot Care: The patient was educated on diabetes and the lower extremity. The patient was instructed to check his feet daily to report any problems or signs of infection immediately. The patient was provided written information on Diabetic Foot Care as well as the Amputation Prevention Guide. Next Appt Details Follow Up: 10 - 12 weeks, Re ason: At-Risk Foot care, sooner if problems develop. Provider Name:SANGEETA KAUFMAN, 09/01/2024 01:30:00 PM, [address] [place] [address], [id number], Progress Notes * EAMON RANKIN ADOB: [birth year] (69 yo M)Acc No.[id number]:06/23/2024 Patient: Juan Ramon ALANNA EAMON A Provider: Lorelei Luke DPM :1955 A ge:69 Y S ex:Male Date:06/23/2024 Address:[address] [place] [address] Subjective: * Chief Complaints: * P atient presents for at-risk foot care . The patient has painful toenails that are causing difficulty with ambulation and shoegear. The onset is gradual. The patient has diabetes mellitus * HPI: H PI: General care P norberto presents to the office for diabetic foot care. Patient states that their nails are thickened, elongated and painful. Patient states that it is aggravated by shoe gear. Onset is gradual., Patient denies taking prescription blood thinners but does take a daily aspirin., Date last seen by Dr. Baker was 05/2024., Initials [facility] , Patient presents to the office for diabetic foot care. Patient states that their nails are thickened, elongated and painful. Patient states that it is aggravated by shoe gear. Onset is gradual., Patient denies taking blood thinners., Date last seen by Dr. Burciaga was September 2023., Initials [facility]. * ROS: G eneral / Constitutional: Patient denies c hills, fever, weight loss. ? M usculoskeletal: Patient denies w eakness, broken foot bone. ? P eripheral Vascular: Patient complains of v ascular surgery left lower extremity. S kin: Patient complains of f ungal nails, nail changes. ? N eurologic: Patient denies b alance difficulty, confusion, difficulty speaking, dizziness. * Medical History: * Surgical History: * Hospitalization/Major Diagno stic Procedure: * Medications: T akingclotrimazole 10 MG/ML Topical Cream CUTANEOUS , Notes to Pharmacist: clotrimazole 10 MG/ML Topical CreamOriginal Medicationclotrimazole 10 MG/ML Topical Cream *Reorder from [employer] for eRx and Interaction Alerts*Medication List reviewed and reconciled with the patientTaking clotrimazole 10 MG/ML Topical Cream CUTANEOUS , Notes to Pharmacist: clotrimazole 10 MG/ML Topical CreamOriginal Medicationclotrimazole 10 MG/ML Topical Cream *Reorder from [employer] for eRx and Interaction Alerts*Medication List reviewed and reconciled with the patient * Allergies: L isinopril: Allergy - Onset Date 07/16/2012no[Allergies Verified] Objective: * Vitals: * Examination: P hysical Examination: General appearance: A lert, pleasant, well-nourished and in no acute distress. D ermatologic: Skin findings: S kin is thin, atrophic and lacking pedal hair. Nail pathology: N ails 1, 2, 3, 4, and 5 bilateral are elongated, thick, discolored, and dystrophic with subungual debris. They are painful to palpation. ? V ascular: Dorsalis pedis pulse: 1 /4 b ilateral. Posterior tibial pulse: 0 /4 bilateral. Capillary refill: g reater than 3 seconds. Edema: N o edema bilateral. N eurologic: Gross sensation G rossly intact to light touch. There is negative Tinel's sign. M usculoskeletal: Muscle Strength M uscle strength is 5/5 in regards to dorsiflexion, plantarflexion, inversion, and eversion in bilateral lower extremities. ? Assessment: * Assessment: 1. T inea unguium - B35.1 (Primary) 2 . P ain in right toe(s) - M79.674? 3. P ain in left toe(s) - M79.675 4 . A therosclerosis of [place] arteries of extremities with intermittent claudication, bilateral legs - I70.213 5 . T ype 2 diabetes mellitus with other circulatory complications - E11.59 Plan: * Treatment: 2. T ype 2 diabetes mellitus with other circulatory complications Notes: Diabetic Foot Care: The patient was educated on diabetes and the lower extremity. The patient was instructed to check his feet daily to report any problems or signs of infection immediately. The patient was provided written information on Diabetic Foot Care as well as the Amputation Prevention Guide. * Procedure Codes: * Follow Up: 1 0 - 12 weeks (Reason: At-Risk Foot care, sooner if problems develop.) * Billing Information: * Visit Code: 20071 Office Visit, Est Pt., Level 3. * Procedure Codes: * ECT ESTIMATOR Sign off status: Completed true * Provider: Lorelei Luke DPM Date: 0 06/23/2024 Generated for Yasir dawkins/Lizbeth/Donitting on: 0 08/16/2024 10:49 AM CDT History and Physical Notes * HPI (History of Present Illness) Category Sub-Category Detail Notes Category Not es HPI General care Patient presents to the office for diabetic foot care. Patient states that their nails are thickened, elongated and painful. Patient states that it is aggravated by shoe gear. Onset is gradual., Patient denies taking prescription blood thinners but does take a daily aspirin., Date last seen by Dr. Baker was 05/2024., Initials [facility] , Patient presents to the office for diabetic foot care. Patient states that their nails are thickened, elongated and painful. Patient states that it is aggravated by shoe gear. Onset is gradual., Patient denies taking blood thinners., Date last seen by Dr. Burciaga was September 2023., Initials JR Examination Category Sub-Category Detail Notes Category Not es Dermatologic Skin findings: Skin is thin, at rophic and lacking pedal hair Nail pathology: Nails 1, 2, 3, 4, an d 5 bilateral are elongated, thick, discolored, and dystrophic with subungual debris. They are painful to palpation Neurologic Gross sensation Grossly intact t o light touch. There is negative Tinel's sign Vascular Dorsalis pedis pulse: 1/4 bilateral Edema: No edema bilateral Capillary refill: greater than 3 secon ds Posterior tibial pulse: 0/4 bilateral Physical Examination General appearance: Alert, pleasant, well-nourished and in no acute distress Musculoskeletal Muscle Strength Muscle strength is 5/5 in regards to dorsiflexion, plantarflexion, inversion, and eversion in bilateral lower extremities
--- OUTSIDE RECORDS SUMMARY | 2024-08-16 10:49 | XMS_ITS ---
Author Organization [facility] Address [address] [place], [place] [id number] Care Team Providers Care Septic Tank Setter Name Role Phone MARLEY LUKE Unavailable [phone] Adebayo Baker Unavailable Unavailable MERY WOOTEN Unavailable [phone] Allergies Allergen (clinical drug ingredient) Drug/Non Drug Allergy documented on EMR Reaction Allergy Type Onset Date Status lisinopril Lisinopril Unknown Drug Allergy 07/16/2012 acti ve REASON FOR VISIT *General care Medications Medication SIG (Take, Route, Frequency, Duration) Notes Start Date End Date Status clotrimazole 10 MG/ML Topical Cream CUTANEOUS clotrimazole 10 MG/ML Topical CreamOriginal Medicationclotrimazole 10 MG/ML Topical Cream *Reorder from [employer] for eRx and Interaction Alerts* 05/06/2012 Active Encounters Encounter Location Date Provider Diagnosis [address] [id number] 04/07/2024 MERY WOOTEN Other hammer toe(s) (acquired), right foot M20.41 ; Tinea unguium B35.1 ; Other hammer toe(s) (acquired), left foot M20.42 ; Pain in right toe(s) M79.674 ; Pain in left toe(s) M79.675 and Unspecified atherosclerosis of [place] arteries of extremities, bilateral legs I70.203 Assessments Encounter Date Diagnosis (ICD Code) Assessment Notes Treatment Notes Treatment Clinical Notes Section Notes 04/07/2024 Other hammer toe(s) (acquired), right foot [...] were discussed, but conservative options were emphasized. 04/07/2024 Tinea unguium (ICD-10 - B35.1) Aseptic [...] prescription treatments. 04/07/2024 Other hammer toe(s) (acquired), left foot (ICD-10 - M20.42) 04/07/2024 Pain in right toe(s) (ICD-10 - M79.674) 04/07/2024 Pain in left toe(s) (ICD-10 - M79.675) 04/07/2024 Unspecified atherosclerosis of [place] arteries of extremities, bilateral legs (ICD-10 - I70.203) Patient educated on risks and aggravating factors of PVD, including conservative treatment options such as a diet and exercise regimen to aid in slowing progression of vascular disease Plan Of Treatment Treatment Notes Assessment Notes Other hammer toe(s) (acquired), right fo ot The patient was educated regarding how to [...] were discussed, but conservative options were emphasized. Tinea unguium Aseptic debridement of elongated thickened nails x [...] educated regarding both OTC and prescription treatments. Unspecified atherosclerosis of [place] arteries of extremities, bilateral legs Patient educated on risks and aggravating factors of PVD, including conservative treatment options such as a diet and exercise regimen to aid in slowing progression of vascular disease Next Appt Details Follow Up: 3 Months, Reason: Provider Name:SANGEETA KAUFMAN, 09/01/2024 01:30:00 PM, [address] [place] [address], [id number], Progress Notes * CHUCHO EAMON ADOB: [birth year] (69 yo M)Acc No.[id number]:04/07/2024 Patient: EAMON ABRAMS Provider: Jermain WOOTEN :1955 A ge:69 Y S ex:Male Date:04/07/2024 Address:[address] [place] [address] Subjective: * Chief Complaints: * 1 . *General care. * HPI: H PI: General care P atient presents to the office for diabetic foot care. Patient states that their nails are thickened, elongated and painful. Patient states that it is aggravated by shoe gear. Onset is gradual., Patient denies taking blood thinners., Date last seen by Dr. Bond was 09/2023., Initials [facility]. * ROS: G eneral / Constitutional: Patient denies w eakness. R espiratory: Patient denies c hronic cough, shortness of breath, sputum production. C ardiovascular: Patient denies c hest pain, history of HI, irregular heartbeat. M usculoskeletal: Patient complains of a rch pain, flat feet/ planus. ? P eripheral Vascular: Patient denies b lanching of skin, cold extremities, decreased sensation in extremities. S kin: Patient denies f ungal nails, itching. N eurologic: Patient denies d izziness, gait abnormality, headache. * Medical History: * Medications: T aking clotrimazole 10 MG/ML Topical Cream CUTANEOUS , Notes to Pharmacist: clotrimazole 10 MG/ML Topical CreamOriginal Medicationclotrimazole 10 MG/ML Topical Cream *Reorder from [employer] for eRx and Interaction Alerts* * Allergies: L isinopril: Allergy - Onset Date 07/16/2012. Objective: * Vitals: * Examination: P hysical Examination: V ascular: Dorsalis Pedis pulse noted at 1/4 right foot and 1/4 left foot and Posterior Tibial pulse noted at 1/4 right foot and 1/4 left foot, Capillary refill times noted to be less than three seconds x ten, Temperature gradient noted to be warm to cool to bilateral foot, pedal hair present to bilateral foot and no varicosities are noted Dermatologic: there are no open lesions, no signs of active clinical infection, no erythema noted, no ecchymoses, nails are elongated thickened and dystrophic with subungual debris x ten Musculoskeletal: there is pain to palpation onto nail plate x ten, no calf pain noted bilaterally, arch height noted at 2/5 non-weight bearing bilaterally, first metatarsophalangeal joint range of motion 30 deg non-weight bearing bilaterally, flexible fifth digit hammer toe deformity noted to bilateral foot reducible with kelikian push up test Neurology: protective sensation intact to light touch bilateral digits one through five, vibratory sensation intact to first metatarsophalangeal joint bilaterally. Assessment: * Assessment: 1. T inea unguium - B35.1 (Primary) 2 . O ther hammer toe(s) (acquired), right foot - M20.41 3 . O ther hammer toe(s) (acquired), left foot - M20.42 ? 4 . P ain in right toe(s) - M79.674 5 . P ain in left toe(s) - M79.675 6 . U nspecified atherosclerosis of [place] arteries of extremities, bilateral legs - I70.203 Plan: * Treatment: 2. O ther hammer toe(s) (acquired), right foot Notes: The patient was educated regarding how to [...] were discussed, but conservative options were emphasized. 3. U nspecified atherosclerosis of [place] arteries of extremities, bilateral legs Notes: Patient educated on risks and aggravating factors of PVD, including conservative treatment options such as a diet and exercise regimen to aid in slowing progression of vascular disease ? * Follow Up: 3 Months * Billing Information: * Visit Code: 29899 Office Visit, Est Pt., Level 3. * Procedure Codes: * INTMENT MANAGER Sign off status: Completed true * Provider: Jermain WOOTEN Date: 06/07/2023 Generated for Yasir dawkins/Lizbeth/Luis on: 0 08/16/2024 10:48 AM CDT History and Physical Notes * HPI (History of Present Illness) Category Sub-Category Detail Notes Category Not es HPI General care Patient presents to the office for diabetic foot care. Patient states that their nails are thickened, elongated and painful. Patient states that it is aggravated by shoe gear. Onset is gradual., Patient denies taking blood thinners., Date last seen by Dr. Bond was 09/2023., Initials [facility] Examination Category Sub-Category Detail Notes Category Not es Physical Examination Vascular: Dorsalis Pedis pulse noted at 1/4 right foot and 1/4 left foot and Posterior Tibial pulse noted at 1/4 right foot and 1/4 left foot, Capillary refill times noted to be less than three seconds x ten, Temperature gradient noted to be warm to cool to bilateral foot, pedal hair present to bilateral foot and no varicosities are noted Dermatologic: there are no open lesions, no signs of active clinical infection, no erythema noted, no ecchymoses, nails are elongated thickened and dystrophic with subungual debris x ten Musculoskeletal: there is pain to palpation onto nail plate x ten, no calf pain noted bilaterally, arch height noted at 2/5 non-weight bearing bilaterally, first metatarsophalangeal joint range of motion 30 deg non-weight bearing bilaterally, flexible fifth digit hammer toe deformity noted to bilateral foot reducible with kelikian push up test Neurology: protective sensation intact to light touch bilateral digits one through five, vibratory sensation intact to first metatarsophalangeal joint bilaterally
--- OUTSIDE RECORDS SUMMARY | 2024-08-16 10:49 | XMS_ITS ---
Author Organization [facility] Address [address] [place], [place] [id number] Care Team Providers [employer] Name Role Phone LORENAMAGNOLIA CallIC Unavailable [phone] Adebayo Baker Unavailable Unavailable Allergies Allergen (clinical drug ingredient) Drug/Non Drug Allergy documented on EMR Reaction Allergy Type Onset Date Status lisinopril Lisinopril Unknown Drug Allergy 07/16/2012 acti ve REASON FOR VISIT The patient has pain on the side of his right great toenail. It is not bleeding or draining, but ithurts when his shoes are on. He also had vascular surgery on his left leg and wants it looked at. He is not having problems with his left leg, but wants it checked to be sure Medications Medication SIG (Take, Route, Frequency, Duration) Notes Start Date End Date Status clotrimazole 10 MG/ML Topical Cream CUTANEOUS clotrimazole 10 MG/ML Topical CreamOriginal Medicationclotrimazole 10 MG/ML Topical Cream *Reorder from [employer] for eRx and Interaction Alerts* 05/06/2012 Active Encounters Encounter Location Date Provider Diagnosis [address] [id number] 08/04/2024 MARLEY LUKE Ingrowing nail L60.0 ; Atherosclerosis of grayling arteries of extremities with intermittent claudication, bilateral legs I70.213 ; Type 2 diabetes mellitus with other circulatory complications E11.59 ; Pain in left toe(s) M79.675 and Pain in right toe(s) M79.674 Assessments Encounter Date Diagnosis (ICD Code) Assessment Notes Treatment Notes Treatment Clinical Notes Section Notes 08/04/2024 Ingrowing nail (ICD-10 - L60.0) Slant Back Toenail: Following skin prep, the offending nail border was debrided without anesthesia. The patient was instructed on monitoring for infection or recurrence. 08/04/2024 Atherosclerosis of grayling arteries of extremities with intermittent claudication, bilateral legs (ICD-10 - I70.213) Patient has CFT<5s and palpable pulse 08/04/2024 Type 2 diabetes mellitus with other circulatory complications (ICD-10 - E11.59) Diabetic Foot Care: The patient was educated on diabetes and the lower extremity. The patient was instructed to check his feet daily to report any problems or signs of infection immediately. The patient was provided written information on Diabetic Foot Care as well as the Amputation Prevention Guide. 08/04/2024 Pain in left toe(s) (ICD-10 - M79.675) 08/04/2024 Pain in right toe(s) (ICD-10 - M79.674) Plan Of Treatment Treatment Notes Assessment Notes Ingrowing nail Slant Back Toenail: Following skin prep, the offending nail border was debrided without anesthesia. The patient was instructed on monitoring for infection or recurrence. Atherosclerosis of grayling ar teries of extremities with intermittent claudication, bilateral legs Patient has CFT<5s and palpable pulse Type 2 diabetes mellitus wit h other circulatory complications Diabetic Foot Care: The patient was educated on diabetes and the lower extremity. The patient was instructed to check his feet daily to report any problems or signs of infection immediately. The patient was provided written information on Diabetic Foot Care as well as the Amputation Prevention Guide. Next Appt Details Follow Up: 4 Weeks, Reason: At risk foot care, sooner if problems return Provider Name:SANGEETA KAUFMAN, 09/01/2024 01:30:00 PM, [address] [place] [address], [phone], Progress Notes * EAMON RANKIN ADOB: [birth year] (69 yo M)Acc No.[id number]:08/04/2024 Patient: Juan Ramon SIERRAWINNIEEAMON Provider: Lorelei Luke DPM :1955 A ge:69 Y S ex:Male Date:08/04/2024 Address:[address] , [id number] Subjective: * Chief Complaints: * 1 . The patient has pain on the side of his right great toenail. It is not bleeding or draining, but it hurts when his shoes are on. He also had vascular surgery on his left leg and wants it looked at. He is not having problems with his left leg, but wants it checked to be sure. * HPI: H PI: New Complaint E stablished patient presents with a new complaint., Patient complains of an issue to the lateral boarder of the right great toenail being tender. He states that it started aggravating him about a week after his general care appointment in June. He states that the pain tends to come and go. P atient states that he had surgery on his left leg at the beginning of the year, and he is wanting to make sure that his circulation to the foot and toes is good. He states there is no pain or anything concerning going on, but he would still like for it to be checked. , MA: triston. * ROS: G eneral / Constitutional: Patient denies c hills, fever, weight loss. ? M usculoskeletal: Patient denies w eakness, broken foot bone. ? P eripheral Vascular: Patient complains of v ascular surgery left lower extremity. S kin: Patient complains of f ungal nails, nail changes. ? N eurologic: Patient denies b alance difficulty, confusion, difficulty speaking, dizziness. * Medical History: * Family History: F ather: PRN - Father: :: Diabetes,,known absent . M other: PRN - Mother: :: Hypertension,,known absent . B rother: SIB - Brother: . S ister: SIB - Sister: . * Social History: M igrated Social History: M igrated Social History: Alcohol intake : , Smoking Status : Never smoked , History of tobacco use :. * Medications: T aking clotrimazole 10 MG/ML Topical Cream CUTANEOUS , Notes to Pharmacist: clotrimazole 10 MG/ML Topical CreamOriginal Medicationclotrimazole 10 MG/ML Topical Cream *Reorder from [facility] for eRx and Interaction Alerts*, Medication List reviewed and reconciled with the patient * Allergies: L isinopril: Allergy - Onset Date 07/16/2012. Objective: * Vitals: * Examination: P hysical Examination: General appearance: A lert, pleasant, well-nourished and in no acute distress. D ermatologic: Skin findings: S kin is thin, atrophic and lacking pedal hair. Ingrown Nail N ail is incurvated on the l ateral border of the right great toenail. No erythema, no calor, no breaks in the skin. ? V ascular: Dorsalis pedis pulse: 1 [...] lower extremities. ? Assessment: * Assessment: 1. I ngrowing nail - L60.0 (Primary) 2 . A therosclerosis of grayling arteries of extremities with intermittent claudication, bilateral legs - I70.213 3 . T ype 2 diabetes mellitus with other circulatory complications - E11.59 4 . P ain in left toe(s) - M79.675 5 . P ain in right toe(s) - M79.674 Plan: * Treatment: 2. A therosclerosis of grayling arteries of extremities with intermittent claudication, bilateral legs Notes: Patient has CFT<5s and palpable pulse 3. T ype 2 diabetes mellitus with other circulatory complications Notes: Diabetic Foot Care: The patient was educated on diabetes and the lower extremity. The patient was instructed to check his feet daily to report any problems or signs of infection immediately. The patient was provided written information on Diabetic Foot Care as well as the Amputation Prevention Guide. * Follow Up: 4 Weeks (Reason: At risk foot care, sooner if problems return) * Billing Information: * Visit Code: 02590 Office Visit, Est Pt., Level 3. * Procedure Codes: * Electronic signature of MARLEY LUKE DPM on 08/16/2024 at 10:49 AM CDT Sign off status: Pending * Provider: Lorelei Luke DPM Date: 0 08/04/2024 Generated for Yasir dawkins/Lizbeth/eTransmitting on: 0 08/16/2024 10:49 AM CDT History and Physical Notes * HPI (History of Present Illness) Category Sub-Category Detail Notes Category Not es HPI New Complaint Established francisca ent presents with a new complaint., Patient complains of an issue to the lateral boarder of the right great toenail being tender. He states that it started aggravating him about a week after his general care appointment in June. He states that the pain tends to come and go. Patient states that he had surgery on his left leg at the beginning of the year, and he is wanting to make sure that his circulation to the foot and toes is good. He states there is no pain or anything concerning going on, but he would still like for it to be checked. , MA: mca Examination Category Sub-Category Detail Notes Category Not es Dermatologic Skin findings: Skin is thin, at rophic and lacking pedal hair Ingrown Nail Nail is incurvated o n the lateral border of the right great toenail. No erythema, no calor, no breaks in the skin Neurologic Gross sensation Grossly intact t o [...]
[2024-08-16 11:20] LABS: Alanine Aminotransferase 14 U/L (6-50); Albumin Level 4.6 g/dL (3.5-5.1); Alkaline Phosphatase 130 U/L (38-126); Anion Gap 10 mmol/L (4-12); Aspartate Amino Transferase 19 U/L (17-59); Bilirubin,Total 1.2 mg/dL (0.2-1.3); Blood Urea Nitrogen 14 mg/dL (9-20); Carbon Dioxide 29 mmol/L (22-30); Chloride 101 mmol/L (98-107); Cholesterol 156 mg/dL (0-200); Estimated Glomerular Filt Rate > 60; Glucose 139 mg/dL (65-110); HDL Direct 50 mg/dL; Potassium 4.1 mmol/L (3.4-5.0); Sodium 140 mmol/L (137-145); Triglycerides 118 mg/dL (<150)
[2024-08-16 11:28] LABS: Hemoglobin A1C 8.1 % (<5.7)
[2024-08-16 11:31] LABS: LDL Cholesterol Direct 75 mg/dL
[2024-08-16 11:49] LABS: Prostate Specific Antigen 1.5 ng/mL (< OR = 4.0)
== END 2024-08-16 09:54 | disposition home or self-care (01) ==
PROVIDERS: PCP Internal Medicine; Visit Provider Nurse Practitioner
DX: E78.5 Hyperlipidemia, unspecified (principal); Z12.5 Encounter for screening for malignant neoplasm of prostate; E53.8 Deficiency of other specified B group vitamins; E11.9 Type 2 diabetes mellitus without complications
CPT/HCPCS: 36415; 80053; 80061; 82607; 83036; 84153; G0103

== ENCOUNTER 2024-09-12 09:33 | Outpatient (CLI) | payer MEDICARE, SELFPAY ==
--- NOTE | ~2024-09-12 | NM_ITS ---
EXAMINATION: NM gertrude stress w perfusion DATE: 09/12/2024 12:37 INDICATION: Chest pain TECHNIQUE: Rest images were obtained following intravenous administration of 9.6 mCi Tc99m tetrofosmi n (Myoview). The patient was infused intravenously with Lexiscan (Regadenoson). Then, 29 mCi Tc99m te trofosmin (Myoview) was administered intravenously, and stress images were obtained. Data was reconst ructed into short axis and horizontal and vertical long axis SPECT images. Gated SPECT images were al so obtained. COMPARISON: None. FINDINGS: There is no definite reversible or fixed perfusion abnormality to suggest ischemia or infar ction. There is normal left ventricular chamber size and wall motion borderline decreased ejection f raction measuring 49%. IMPRESSION: 1. Normal myocardial perfusion at rest and during stress. 2. Borderline decreased left ventricular ejection fraction measuring 49%. Reviewed, dictated and finalized at location B.
--- NOTE | 2024-09-12 09:57 | EST_ITS ---
Patient Info Name: Tony Pelayo Age: 69 years : 1955 Gender: Male Ht: 69 in Wt: 185 lbs BSA: 2.04 m2 HR: 65 bpm BP: 144 / 79 mmHg Exam Date: 09/12/2024 11:30 AM Exam Location: Echo Lab Patient Status: Outpatient Admit Date: 09/12/2024 Staff Ordering Physician: Adebayo Baker DO Attending Provider: Adebayo Baker DO Exercise Technologist: Deisi Canales [facility] Exercise Physician: Refugio Bautista DO Exam Type: CA stress gertrude w NM Study Info A regadenoson stress test was performed. Summary 1. 1. Negative lexiscan stress test for ischemic ST changes by ECG criteria. 2. 2. Stable hemodynamics throughout the test. 3. 3. Nuclear scan to follow and will be reported separately. Please correlate with it. Protocol: Lexiscan Stress ECG Details Stage: REST Duration (min): 2 min : 18 sec HR (bpm): 64 SBP (mmHg): 144 DBP (mmHg): 79 Stage: REST Duration (min): 11 min : 6 sec HR (bpm): 66 SBP (mmHg): 144 DBP (mmHg): 79 Stage: STAGE 1 Duration (min): 1 min : 0 sec HR (bpm): 72 SBP (mmHg): 155 DBP (mmHg): 82 Stage: RECOVERY Duration (min): 1 min : 0 sec HR (bpm): 84 SBP (mmHg): 155 DBP (mmHg): 82 Stage: RECOVERY Duration (min): 2 min : 0 sec HR (bpm): 81 SBP (mmHg): 155 DBP (mmHg): 82 Stage: RECOVERY Duration (min): 3 min : 0 sec HR (bpm): 82 SBP (mmHg): 148 DBP (mmHg): 69 Stage: RECOVERY Duration (min): 3 min : 3 sec HR (bpm): 81 SBP (mmHg): 148 DBP (mmHg): 69 Rest HR: 66 bpm Peak HR: 88 bpm Rest Sys BP: 144 mmHg Peak Sys BP: 155 mmHg Max Pred HR: 150 bpm % Max Pred HR: 59 % Target HR: 128 bpm Max RPP: 13,640 bpm*mmHg Termination Reason: Completed protocol Cardiac Symptoms: Shortness of breath Total Time: 1 min : 0 sec Rest Santos BP: 79 mmHg Peak Santos BP: 82 mmHg Total Dose: 0.4 mg Resting ECG Sinus rhythm, PRWP, borderline T wave in inf/lat leads. Stress ECG No ST changes. Arrhythmias None. Report Signatures
--- OUTSIDE RECORDS SUMMARY | 2024-09-12 10:35 | XMS_ITS | Clinical Summary ---
Author Organization [facility] Address [address] [place] [address] Phone Care Team Providers Care Product Support Sales Representative Name Role Phone Unavailable Primary Care Provider [...] at bedtime. 30 Tablet 03/27/2023 4:26 PM [facility] 03/27/2023 Active aspirin (ECOTRIN EC) 81 mg Tablet, Delayed Release (E.C.) Starting 03/28, Take 1 Tablet (81 mg) by mouth daily. 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 Overview (03/01/2024): Left leg Abnormal EKG 03/26/2023 Type 2 diabetes mellitus wit hout complication, without long-term current use of insulin 03/26/2023 Preoperative cardiovascular examination 03/26/20 23 Claudication in peripheral vascular disease 01/2023 Type 2 diabetes mellitus wit h diabetic peripheral angiopathy without gangrene 03/25/2023 Benign hypertension 03/25/2023 MANJIT on CPAP 03/25/2023 Major depression 03/25/2023 Hypoxemia 03/25/2023 Severe peripheral arterial disease 03/25/2023 Encounters Date Type Department Care Team Description 09/09/2024 2:45 PM CDT [facility] [address] [facility] [address] [place] [address] Celestino Ahumada MD Bypass graft stenosis, subsequent encounter (Primary Dx); Severe peripheral arterial disease 09/09/2024 12:37 PM CDT - 09/09/2024 11:59 PM CDT Hospital Encounter [facility] Blood Flow [address] [place] [address] Celestino Ahumada MD Arrived Discharge Disposition: Home or Self Care 09/09/2024 12:37 PM CDT - 09/09/2024 11:59 PM CDT Hospital Encounter [facility] Blood Flow [address] [place] [address] Celestino Ahumada MD Arrived Discharge Disposition: Home or Self Care 06/29/2024 Orders Only [facility] Delivery Clerk [facility] [address] [facility] [address] [place] [address] Celestino Ahumada MD Bypass graft stenosis, subsequent encounter (Primary Dx); Severe peripheral arterial disease from Last 3 Months Social History Tobacco Use Types Packs/Day Years Used Date Smoking Tobacco: Never Tobacco Cessation:Counseling Given: Not Answered Feeling Safe Answer Date Recorded Are you in a relationship wi th someone who hurts you emotionally and/or physically? No 03/31/2024 Food Insecurity Answer Date Recorded Patient needs follow up regardin 09/08/2024 Transportation Needs Answer Date Record ed Patient needs follow up regardin 09/08/2024 Housing Stability Answer Date Recorded Social/Environmental Concerns No concerns Utility Needs Answer Date Recorded Patient needs follow up regardin 09/08/2024 Sex and Gender Information Value Date Recorded Sex Assigned at Not on file Legal Sex Male 1:24 PM [facility] Gender Identity Not on file Sexual Orientation Not on file Last Filed Vital Signs Vital Sign Reading Time Taken Comments Blood Pressure 155/89 09/09/2024 2:27 PM CDT Pulse 74 09/09/2024 2:27 PM CDT Temperature 36.6 C (97.9 F) 03/31/2024 6:09 AM [facility] Respiratory Rate 21 03/31/2024 12:30 PM [facility] Oxygen Saturation 94% 03/31/2024 12:30 PM [facility] Inhaled Oxygen Concentration - - Weight 84.8 kg (187 lb) 03/31/2024 6:09 AM [facility] Height 177.8 cm (5' 10 ) 03/31/2024 6:09 AM [facility] Body Mass Index 26.83 03/31/2024 6:09 AM [facility] Plan of Treatment Upcoming Encounters Date Type Department Care Team (Late st Contact Info) Description 03/14/2025 9:00 AM CDT Appointment [facility] Blood Flow [address] [place] [address] Kelsie Huynh APN [address] [facility] [address] [place] [address] 03/14/2025 10:00 AM CDT Appointment [facility] Blood Flow [address] [place] [address] Kelsie Huynh APN [address] [facility] [address] [place] [address] 03/14/2025 10:45 AM CDT Office Visit [facility] Delivery Clerk [facility] [address] [facility] [address] [place] [address] Celestino Ahumada MD [address] [facility] [address] [address] Health Maintenance Due Date Last Done Comments [...] 03/26/2024 03/26/2023 LDL CHOLESTEROL ANNUAL 03/26/2024 03/26/2023 Medical Devices Implanted Type Area Aluminum Siding Applicator Device Identifier Shelf Expiration Date Model / Serial / Lot Clip Ligating Horizon Sm Ti [id number] - Csc - [id number] Implanted:Qty: 5 on 03/30/2023 by Celestino Ahumada MD at [facility] Clip Left: Leg [employer] 10/07/2027 [id number] / / [id number] Clip Ligating Horizon Med Ti [id number] - Csc - [id number] Implanted:Qty: 2 on 03/30/2023 by Celestino Ahumada MD at [facility] Clip Left: Leg TELEFLEX- WECK CLOSURE SYS 01/14/2028 [id number] / / [id number] Hemostatic Surgiflo 8ml W/ Thrombin 2994 - [id number] Implanted:Qty: 1 on 03/30/2023 by Celestino Ahumada MD at [facility] Hemostatic Left: Leg [employer] 11/15/2023 [id number] / / [id number] Procedures Procedure Name Priority Date/Time Associated Diagnosis Comments US DOPPLER LOWER GRAFT LT Routine 09/09/2024 2:26 PM CDT Bypass graft stenosis, subsequent encounter US ANKLE PRESSURE INDEX Routine 09/09/2024 2:25 PM CDT Bypass graft stenosis, subsequent encounter Severe peripheral arterial disease LIPID PANEL Routine 03/26/2023 1:45 AM [facility] HEMOGLOBIN A1C Routine 03/25/2023 4:30 PM [facility] from Last 3 Months or Most Recently Relevant to Health Maintenance Results * US DOPPLER LOWER GRAFT LT (09/09/2024 2:26 PM CDT) Anatomical Region Laterality Modality Lower Extremity Ultrasound 09/09/2024 1:12 PM CDT Narrative 09/10/2024 8:31 AM CDT [address] [place] [address] [email or web address] Lower Extremity Graft Duplex Evaluation Patient: Tony Pelayo Study ID: [id number] Gender: M : 1955 Age: 69 Race: CAU Height Study Date: 09/09/2024 Weight: Access. #: [id number] *Referring Physician:Gage Lewis Mark *Ordering Physician:Celestino Parham M.D.Creel Clerk:Nahomy Linad Indications: Graft surveillance. History: Risk factors: Hypertension. Diabetes mellitus. Prior angiography/angioplasty 03/31/24. Labs, prior tests, procedures, and surgery: Left graft (03/30/2023). Study data: [facility] Study status: Routine. Procedure: A vascular evaluation was performed with the patient in the supine position. Image quality was good. Lower extremity graft duplex evaluation. Duplex scan, pressure measurement, and pulse volume recording. Birthdate: Patient birthdate: 1955. Age: Patient is 69year(s) old. Sex: gender: male. Study date: Study date: 09/09/2024. Study time: 01:12 PM. Location: Vascular laboratory. Patient status: Outpatient. Impressions - Vein from the left femoral artery to the left popliteal artery: The graft is widely patent and well visualized. Elevated velocities noted in the outflow popliteal artery with a ratio of 2.4 consistent with >50% stenosis. - Right BELEM: 1.07. This is within the normal range at rest. - Left BELEM: 1.18. This is within the normal range at rest. Peripheral grafts: Vein from the left femoral artery to the left popliteal artery: The graft is widely patent and well visualized. Elevated velocities noted in the outflow popliteal artery with a ratio of 2.4 consistent with >50% stenosis. Arterial evaluation findings: Right: Right BELEM: 1.07. This is within the normal range at rest. Left: Left BELEM: 1.18. This is within the normal range at rest. Tables: Arterial flow: + +-----+ !Location !V sys! + +-----+ !Graft from left femoral to left popliteal - inflow!115 ! + +-----+ !Graft - proximal anastomosis !257 ! + +-----+ !Graft Zone 1 !87 ! + +-----+ !Graft Zone 2 !101 ! + +-----+ !Graft Zone 3 !106 ! + +-----+ !Graft - distal anastomosis !86 ! + +-----+ !Graft - outflow !209 ! + +-----+ *Velocities are expressed in cm/s, Diameters are expressed in cm Prepared and Electronically Authenticated Rupert Flor [id number]:[id number] Procedure Note Rupert Flor MD - 09/10/[address] [address] [email or web address] Lower Extremity Graft Duplex Evaluation Patient: Tony Pelayo Study ID: [id number] Gender: M : 1955 Age: 69 Race: [facility] Height Study Date: 09/09/2024 Weight: Access. #: [id number] *Referring Physician:Gage Lewis Mark *Ordering Physician:Celestino Parham M.D.Creel Clerk:Nahomy Linda Indications: Graft surveillance. History: Risk factors: Hypertension. Diabetes mellitus. Prior angiography/angioplasty 03/31/24. Labs, prior tests, procedures, and surgery: Left graft (03/30/2023). Study data: New node Study status: Routine. Procedure: A vascular evaluation was performed with the patient in the supine position. Image quality was good. Lower extremity graft duplex evaluation. Duplexscan, pressure measurement, and pulse volume recording. Birthdate: Patient birthdate: 1955. Age: Patient is 69year(s) old. Sex: Birthgender: male. Study date: Study date: 09/09/2024. Study time: 01:12 PM.Location: Vascular laboratory. Patient status: Outpatient. Impressions - Vein from the left femoral artery to the left popliteal artery: Thegraft is widely patent and well visualized. Elevated velocities noted in theoutflow popliteal artery with a ratio of 2.4 consistent with >50% stenosis. - Right BELEM: 1.07. This is within the normal range at rest. - Left BELEM: 1.18. This is within the normal range at rest. Peripheral grafts: Vein from the left femoral artery to the left popliteal artery: The graftis widely patent and well visualized. Elevated velocities noted in theoutflow popliteal artery with a ratio of 2.4 consistent with >50% stenosis. Arterial evaluation findings: Right: Right BELEM: 1.07. This is within the normal range at rest. Left: Left BELEM: 1.18. This is within the normal range at rest. Tables: Arterial flow: + +-----+ !Location !V sys! + +-----+ !Graft from left femoral to left popliteal - inflow!115 ! + +-----+ !Graft - proximal anastomosis !257 ! + +-----+ !Graft Zone 1 !87 ! + +-----+ !Graft Zone 2 !101 ! + +-----+ !Graft Zone 3 !106 ! + +-----+ !Graft - distal anastomosis !86 ! + +-----+ !Graft - outflow !209 ! + +-----+ *Velocities are expressed in cm/s, Diameters are expressed in cm Prepared and Electronically Authenticated Rupert Flor [id number]:31:13 us Celestino Ahumada MD US ORDERABLES Final Result * US ANKLE PRESSURE INDEX (09/09/2024 2:25 PM CDT) Anatomical Region Laterality Modality Lower Extremity Ultrasound Impressions 09/12/2024 8:52 AM CDT : No evidence of arterial insufficiency to bilateral lower extremities at rest. KMD/grb - transcribed in Epic - Narrative 09/12/2024 8:52 AM CDT BELEM INDICATION FOR THE STUDY: Patient history of left femoropopliteal artery bypass. Right brachial artery pressure 176. Left brachial artery pressure 165. Highest ankle pressure on the right is 186. Highest ankle pressure on the left is 208. Right digit pressure is 70. Left digit pressure is 71. Biphasic waveforms in bilateral tibial vessels. Bilateral ABIs at rest are greater than 1. Celestino Ahumada MD ORDERABLES Final Result * (ABNORMAL) LIPID PANEL (03/26/2023 1:45 AM [facility]) CHOLESTEROL 115 <200 mg/dL 03/26/2023 3:36 AM [facility] TRIGLYCERIDE 129 <150 mg/dL 03/26/2023 3:36 AM [facility] HDL 37(L) 40 - 59 mg/dL 03/26/2023 3:36 AM [facility] LDL CALCULATED 52 <100 mg/dL 03/26/2023 3:36 AM [facility] NON-HDL CHOLESTEROL 78 <130 mg/dL 03/26/2023 3:36 AM [facility] [employer] [facility] Blood Venipuncture / Unknown 03/26/2023 1:45 AM [facility] 03/26/2023 2:28 AM [facility] Narrative [facility] [employer] [facility] - 03/26/2023 3:36 AM [facility] TOTAL CHOLESTEROL mg/dL Desirable <200 Borderline high [...] Reference Ranges for Lipid Panels (NCEP/AMA) . Nahum Krishnamurthy MD CHEMISTRY ORDERABLES Final Resu lt Performing Organization Address [facility]/ZIP Co de Phone Number [facility] [employer] [facility] CLIA# [id number] [address] [place] [address] * (ABNORMAL) HEMOGLOBIN A1C (03/25/2023 4:30 PM [facility]) HEMOGLOBIN A1C 7.9(H) <5.7 % 03/25/2023 9:15 PM [facility] EST. AVG GLUCOSE, A1C 180 mg/dL 03/25/2023 9:15 PM [facility] Blood Venipuncture / Unknown 03/25/2023 4:30 PM [facility] 03/25/2023 4:37 PM [facility] Narrative [facility] - 03/25/2023 9:15 PM [facility] HGB A1C INTERPRETATION NORMAL: <5.7% PRE-DIABETES: 5.7 - 6.4% DIABETES: 6.5% OR GREATER Nahum Krishnamurthy MD CHEMISTRY ORDERABLES Final Resu lt Performing Organization Address [facility] Co de Phone Number [facility] [employer] [facility]# [id number] [address] [place] [address] from Last 3 Months or Most Recently Relevant to Health Maintenance Insurance [employer] CHO[employer] PPO MCR RX [employer] RX Member Subscriber Plan / Payer (Ef fective for All Dates) Name:Tony Pelayo Nicolas Relation to Subscriber:Self Name:Tony Pelayoolph Payer ID:Not on file Group ID:[id number] Type:RX Commercial Address: [address] Advance Directives For more information, please contact: [phone] * Full Code (Latest Code Status on File) Date Activated Date Inactivated Comments 03/31/2024 5:22 AM 03/31/2024 4:07 PM * Full Code Date Activated Date Inactivated Comments 03/30/2023 4:48 PM 04/02/2023 4:56 PM * Full Code Date Activated Date Inactivated Comments 03/25/2023 7:39 PM 03/27/2023 7:29 PM
--- OUTSIDE RECORDS SUMMARY | 2024-09-12 10:35 | XMS_ITS ---
Author Organization [facility] Address [address] [place], [place] [id number] Care Team Providers Care Director Of Recruitment And Admissions Name Role Phone MARLEY LUKE Unavailable [phone] Adebayo Baker Unavailable Unavailable MERY WOOTEN Unavailable [phone] Allergies Allergen (clinical drug ingredient) Drug/Non Drug Allergy documented on EMR Reaction Allergy Type Onset Date Status Lisinopril Unknown Drug Allergy 07/16/2012 activ e REASON FOR VISIT *General care Medications Medication SIG (Take, Route, Frequency, Duration) Notes Start Date End Date Status clotrimazole 10 MG/ML Topical Cream CUTANEOUS clotrimazole 10 MG/ML Topical CreamOriginal Medicationclotrimazole 10 MG/ML Topical Cream *Reorder from [employer] for eRx and Interaction Alerts* 05/06/2012 Active Encounters Encounter Location Date Provider Diagnosis [address] [id number] 04/07/2024 MERY WOOTEN Other hammer toe(s) (acquired), right foot M20.41 ; Tinea unguium B35.1 ; Other hammer toe(s) (acquired), left foot M20.42 ; Pain in right toe(s) M79.674 ; Pain in left toe(s) M79.675 and Unspecified atherosclerosis of [place] arteries of extremities, bilateral legs I70.203 Assessments [...] (ICD-10 - M79.675) 04/07/2024 Unspecified atherosclerosis of [place] arteries of extremities, bilateral legs (ICD-10 - [...] OTC and prescription treatments. Unspecified atherosclerosis of [place] arteries of extremities, bilateral legs Patient educated on risks and aggravating factors of PVD, including conservative treatment options such as a diet and exercise regimen to aid in slowing progression of vascular disease Next Appt Details Follow Up: 3 Months, Reason: Provider Name:SANGEETA KAUFMAN, 09/15/2024 02:50:00 PM, [address] [place] [address], [id number], Progress Notes * CHUCHO EAMON ADOB: [birth year] (69 yo M)Acc No.[id number]:04/07/2024 Patient: EAMON ABRASM Provider: Jermain WOOTEN :1955 A ge:69 Y S ex:Male Date:04/07/2024 Address:[address] [place] [address] Subjective: * Chief Complaints: * 1 . *General care. * HPI: H PI: General care P atient presents to the office for diabetic foot care. Patient states that their nails are thickened, elongated and painful. Patient states that it is aggravated by shoe gear. Onset is gradual., Patient denies taking blood thinners., Date last seen by Dr. Bond was 09/2023., Initials [facility]. * ROS: G eneral / Constitutional: Patient denies w eakness. R espiratory: Patient denies c hronic cough, shortness of breath, sputum production. C ardiovascular: Patient denies c hest pain, history of UT, irregular heartbeat. M usculoskeletal: Patient complains of a h pain, flat feet/ planus. ? P eripheral [...] Medicationclotrimazole 10 MG/ML Topical Cream *Reorder from [employer] for eRx and Interaction Alerts* * Allergies: [...] M79.675 6 . U nspecified atherosclerosis of [place] arteries of extremities, bilateral legs - I70.203 [...] were emphasized. 3. U nspecified atherosclerosis of [place] arteries of extremities, bilateral legs Notes: Patient educated on risks and aggravating factors of PVD, including conservative treatment options such as a diet and exercise regimen to aid in slowing progression of vascular disease ? * Follow Up: 3 Months * Billing Information: * Visit Code: 13557 Office Visit, Est Pt., Level 3. * Procedure Codes: * RNED GOODS INSPECTOR Sign off status: Completed true * Provider: Jermain WOOTEN Date: 1 06/07/2023 Generated for Yasir dawkins/Lizbeth/Luis on: 0 09/12/2024 10:35 AM CDT History and Physical Notes * [...]
--- OUTSIDE RECORDS SUMMARY | 2024-09-12 10:35 | XMS_ITS ---
Author Organization [facility] Address [address] [place], [place] [id number] Care Team Providers Care Manager Cash Name Role Phone MARLY MARLEY Unavailable [phone] Adebayo Baker Unavailable Unavailable Allergies Allergen (clinical drug ingredient) Drug/Non Drug Allergy documented on EMR Reaction Allergy Type Onset Date Status Lisinopril Unknown Drug Allergy 07/16/2012 activ e REASON FOR VISIT Patient presents for at-risk foot care . The patient has painful toenails that are causing difficulty with ambulation and shoegear. The onset is gradual. The patient has diabetes mellitus Medications Medication SIG (Take, Route, Frequency, Duration) Notes Start Date End Date Status clotrimazole 10 MG/ML Topical Cream CUTANEOUS clotrimazole 10 MG/ML Topical CreamOriginal Medicationclotrimazole 10 MG/ML Topical Cream *Reorder from [employer] for eRx and Interaction Alerts* 05/06/2012 Active Encounters Encounter Location Date Provider Diagnosis [address] [id number] 06/23/2024 MARLEY LUKE Tinea unguium B35.1 ; Pain in right toe(s) M79.674 ; Pain in left toe(s) M79.675 ; Atherosclerosis of [place] arteries of extremities with intermittent claudication, bilateral [...] toe(s) (ICD-10 - M79.675) 06/23/2024 Atherosclerosis of [place] arteries of extremities with intermittent claudication, bilateral [...] sooner if problems develop. Provider Name:SANGEETA KAUFMAN, 09/15/2024 02:50:00 PM, [address] [place] [address], [phone], Progress Notes * EAMON RANKIN ADOB: [birth year] (69 yo M)Acc No.[id number]:06/23/2024 Patient: Juan Ramon SIERRAWINNIEEAMON A Provider: Lorelei Luke DPM :1955 A ge:69 Y S ex:Male Date:06/23/2024 Address:[address] [place] [address] Subjective: * Chief Complaints: * P atient [...] seen by Dr. Baker was 05/2024., Initials [facility] , Patient presents to the office for diabetic foot care. Patient states that their nails are thickened, elongated and painful. Patient states that it is aggravated by shoe gear. Onset is gradual., Patient denies taking blood thinners., Date last seen by Dr. Burciaga was September 2023., [facility] . * ROS: G eneral / Constitutional: Patient [...] Medicationclotrimazole 10 MG/ML Topical Cream *Reorder from [employer] for eRx and Interaction Alerts*Medication List reviewed and reconciled with the patientTaking clotrimazole 10 MG/ML Topical Cream CUTANEOUS , Notes to Pharmacist: clotrimazole 10 MG/ML Topical CreamOriginal Medicationclotrimazole 10 MG/ML Topical Cream *Reorder from [employer] for eRx and Interaction Alerts*Medication List reviewed [...] - M79.675 4 . A therosclerosis of [place] arteries of extremities with intermittent claudication, bilateral [...] develop.) * Billing Information: * Visit Code: 68143 Office Visit, Est Pt., Level 3. * Procedure Codes: * OPERATOR Sign off status: Completed true * Provider: Lorelei Luke DPM Date: 06/23/2024 Generated for Yasir dawkins/Lizbeth/Donitting on: 0 09/12/2024 10:35 AM CDT History [...] seen by Dr. Baker was 05/2024., Init[facility] , Patient presents to the office for [...]
--- OUTSIDE RECORDS SUMMARY | 2024-09-12 10:36 | XMS_ITS | Patient Health Record ---
Author Organization [facility] Address [address] [place], [place] [id number] Care Team Providers Care Natural [employer] Basis Trader Name Role Phone LORENAMAGNOLIA CallIC Unavailable [phone] Adebayo Baker Unavailable Unavailable MERY WOOTEN Unavailable [phone] Allergies Allergen (clinical drug ingredient) Drug/Non Drug Allergy documented on EMR Reaction Allergy Type Onset Date Status Lisinopril Unknown Drug Allergy 07/16/2012 activ e Reason For Referral No Information Medications Medication SIG (Take, Route, Frequency, Duration) Notes Start Date End Date Status clotrimazole 10 MG/ML Topical Cream CUTANEOUS clotrimazole 10 MG/ML Topical CreamOriginal Medicationclotrimazole 10 MG/ML Topical Cream *Reorder from [employer] for eRx and Interaction Alerts* 05/06/2012 Active Vital Signs Height-cm 177.80 cm 11/05/2023 Weight-kg 89.81 kg 11/05/2023 Height 70.00 in 11/05/2023 Weight 198 lbs 11/05/2023 BMI 28.41 kg/m2 11/05/2023 Encounters Encounter Location Date Provider Diagnosis [address] [id number] 08/04/2024 MARLEYPEG FISHERLORENAOneyda Ingrowing nail L60.0 ; Atherosclerosis of [place] arteries of extremities with intermittent claudication, bilateral legs I70.213 ; Type 2 diabetes mellitus with other circulatory complications E11.59 ; Pain in left toe(s) M79.675 and Pain in right toe(s) M79.[address] [id number] 09/17/2023 MERY DAVYDOV Other hammer toe(s) (acquired), right foot M20.41 ; Tinea unguium B35.1 ; Other hammer toe(s) (acquired), left foot M20.42 ; Pain in right toe(s) M79.674 ; Pain in left toe(s) M79.675 and Unspecified atherosclerosis of [place] arteries of extremities, bilateral legs I70.203 [facility] [address] [place], [place] [id number] 10/15/2023 MREYFREDO LOPEZYDTRAN Plantar 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 ; Short Achilles tendon (acquired), left ankle M67.02 ; Localized edema R60.0 and Pain in left foot M79.[address] [id number] 11/05/2023 MERYFREDO WOOTEN Plantar 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 ; Short Achilles tendon (acquired), left ankle M67.02 ; Localized edema R60.0 and Pain in left foot M79.[address] [id number] 11/26/2023 MERYFREDO WOOTEN Other hammer toe(s) (acquired), right foot M20.41 ; Tinea unguium B35.1 ; Other hammer toe(s) (acquired), left foot M20.42 ; Pain in right toe(s) M79.674 ; Pain in left toe(s) M79.675 and Unspecified atherosclerosis of [place] arteries of extremities, bilateral legs I70.203 [facility] [address] [id number] 01/28/2024 MERYFREDO WOOTEN Other hammer toe(s) (acquired), right foot M20.41 ; Tinea unguium B35.1 ; Other hammer toe(s) (acquired), left foot M20.42 ; Pain in right toe(s) M79.674 ; Pain in left toe(s) M79.675 and Unspecified atherosclerosis of [place] arteries of extremities, bilateral legs I70.[address] [id number] 04/07/2024 MERY WOOTEN Other hammer toe(s) (acquired), right foot M20.41 ; Tinea unguium B35.1 ; Other hammer toe(s) (acquired), left foot M20.42 ; Pain in right toe(s) M79.674 ; Pain in left toe(s) M79.675 and Unspecified atherosclerosis of [place] arteries of extremities, bilateral legs I70.[address] [id number] 06/23/2024 MARLEY LUKE Tinea unguium B35.1 ; Pain in right toe(s) M79.674 ; Pain in left toe(s) M79.675 ; Atherosclerosis of [place] arteries of extremities with intermittent claudication, bilateral [...] and necrotic tissue removed 08/04/2024 Atherosclerosis of [place] arteries of extremities with intermittent claudication, bilateral [...] toe(s) (ICD-10 - M79.675) 06/23/2024 Atherosclerosis of [place] arteries of extremities with intermittent claudication, bilateral legs (ICD-10 - I70.213) 08/04/2024 Pain in right toe(s) (ICD-10 - M79.674) 04/07/2024 Pain in left toe(s) (ICD-10 - M79.675) 01/28/2024 Pain in left toe(s) (ICD-10 - M79.675) 11/26/2023 Pain in left toe(s) (ICD-10 - M79.675) 09/17/2023 Pain in left toe(s) (ICD-10 - M79.675) 09/17/2023 Unspecified atherosclerosis of [place] arteries of extremities, bilateral legs (ICD-10 - I70.203) Patient educated on risks and aggravating factors of PVD, including conservative treatment options such as a diet and exercise regimen to aid in slowing progression of vascular disease 11/26/2023 Unspecified atherosclerosis of [place] arteries of extremities, bilateral legs (ICD-10 - I70.203) Patient educated on risks and aggravating factors of PVD, including conservative treatment options such as a diet and exercise regimen to aid in slowing progression of vascular disease 04/07/2024 Unspecified atherosclerosis of [place] arteries of extremities, bilateral legs (ICD-10 - I70.203) Patient educated on risks and aggravating factors of PVD, including conservative treatment options such as a diet and exercise regimen to aid in slowing progression of vascular disease 01/28/2024 Unspecified atherosclerosis of [place] arteries of extremities, bilateral legs (ICD-10 - [...] Treatment Next Appt Details Provider Name:SANGEETA KAUFMAN, 09/15/2024 02:50:00 PM, [address] [place] [address], [phone], Insurance Providers Payer Name Payer Address Payer Phone Subscriber Number Group Number Insured Name Patient Relationship to Insured Coverage Start Date Coverage End Date [facility] [address] [place] [address] [id number] EAMON RANKIN Self - patient is the insured
--- OUTSIDE RECORDS SUMMARY | 2024-09-12 10:36 | XMS_ITS ---
Author Organization [facility] Address [address] [place], [place] [phone] Care Team Providers Care Bakery Chef Name Role Phone MARLEY LUKE Unavailable [phone] Adebayo Baker Unavailable Unavailable Allergies Allergen (clinical drug ingredient) Drug/Non Drug Allergy documented on EMR Reaction Allergy Type Onset Date Status Lisinopril Unknown Drug Allergy 07/16/2012 activ e REASON FOR VISIT The patient has pain [...] Medicationclotrimazole 10 MG/ML Topical Cream *Reorder from [employer] for eRx and Interaction Alerts* 05/06/2012 Active Encounters Encounter Location Date Provider Diagnosis [address] [id number] 08/04/2024 MARLEYPEG FISHERLORENAOneyda Ingrowing nail L60.0 ; Atherosclerosis of [place] arteries of extremities with intermittent claudication, bilateral [...] for infection or recurrence. 08/04/2024 Atherosclerosis of [place] arteries of extremities with intermittent claudication, bilateral [...] monitoring for infection or recurrence. Atherosclerosis of [place] ar teries of extremities with intermittent claudication, [...] sooner if problems return Provider Name:SANGEETA KAUFMAN, 09/15/2024 02:50:00 PM, [address] [place] [address], [phone], Progress Notes * CHUCHO EAMON ADOB: [birth year] (69 yo M)Acc No.[id number]:08/04/2024 Patient: EAMON ABRAMS Provider: Lorelei Luke DPM :1955 A ge:69 Y S ex:Male Date:08/04/2024 Address:[address] [place] [address] [id number] Subjective: * Chief Complaints: * 1 . [...] Medicationclotrimazole 10 MG/ML Topical Cream *Reorder from [id number] for eRx and Interaction Alerts*, Medication List [...] L60.0 (Primary) 2 . A therosclerosis of [place] arteries of extremities with intermittent claudication, bilateral legs - I70.213 3 . T ype 2 diabetes mellitus with other circulatory complications - E11.59 4 . P ain in left toe(s) - M79.675 5 . P ain in right toe(s) - M79.674 Plan: * Treatment: 2. A therosclerosis of [place] arteries of extremities with intermittent claudication, bilateral [...] return) * Billing Information: * Visit Code: 50320 Office Visit, Est Pt., Level 3. * Procedure Codes: * Electronic signature of MARLEY LUKE DPM on 09/12/2024 at 10:36 AM CDT Sign off status: Pending * Provider: Lorelei Luke DPM Date: 0 08/04/2024 Generated for Yasir dawkins/Lizebth/eTransmitting on: 0 09/12/2024 10:36 AM CDT History and Physical Notes * [...]
== END 2024-09-12 09:34 | disposition home or self-care (01) ==
PROVIDERS: PCP Internal Medicine; Visit Provider Internal Medicine
DX: R07.9 Chest pain, unspecified (principal)
CPT/HCPCS: 78452; 93017; A9502; J2785

== ENCOUNTER 2025-02-22 10:05 | Outpatient (CLI) | payer MEDICARE, SELFPAY ==
[2025-02-22 10:44] LABS: Hematocrit 51.0 % (42.0-52.0); Hemoglobin 17.0 g/dL (14.0-18.0); Immature Granulocyte Percent A 0.6 % (0-0.5); Lymphocytes Absolute Auto 1.61 K/mm3 (0.9-3.2); Mean Corpuscular HGB Conc 33.3 g/dl (32-36); Mean Corpuscular Hemoglobin 32.5 pg (26-34); Mean Corpuscular Volume 97.5 fl (80-100); Nucleated Red Blood Cells Absolute Auto 0.000 K/mm3 (0.0-0.012); Nucleated Red Blood Cells Perc 0.0 % (0.0-0.2); Platelet Count Result 273 k/mm3 (150-375); Red Blood Count 5.23 M/mm3 (4.6-6.20); White Blood Count 12.4 K/mm3 (4.5-10.0)
[2025-02-22 11:29] LABS: MALB Creatinine Ratio 57.7 mg/g (0-30)
[2025-02-22 11:53] LABS: Alanine Aminotransferase 14 U/L (6-50); Albumin Level 4.5 g/dL (3.5-5.1); Alkaline Phosphatase 119 U/L (38-126); Anion Gap 10 mmol/L (4-12); Aspartate Amino Transferase 23 U/L (17-59); Bilirubin,Total 1.7 mg/dL (0.2-1.3); Blood Urea Nitrogen 21 mg/dL (9-20); Calcium 9.5 mg/dL (8.4-10.2); Carbon Dioxide 25 mmol/L (22-30); Chloride 102 mmol/L (98-107); Cholesterol 167 mg/dL (0-200); Estimated Glomerular Filt Rate > 60; Glucose 173 mg/dL (65-110); HDL Direct 41 mg/dL; Potassium 4.0 mmol/L (3.4-5.0); Sodium 137 mmol/L (137-145); Total Protein 7.7 g/dL (6.3-8.2); Triglycerides 150 mg/dL (<150)
[2025-02-22 12:21] LABS: Hemoglobin A1C 7.9 % (<5.7)
[2025-02-22 13:22] LABS: Vitamin B12 170.0 pg/mL (239-931)
== END 2025-02-22 10:06 | disposition home or self-care (01) ==
LOC: ANHLAB 10:06
PROVIDERS: PCP Internal Medicine; Visit Provider Internal Medicine
DX: R53.83 Other fatigue (principal); I10 Essential (primary) hypertension; E11.69 Type 2 diabetes mellitus with other specified complication; E78.5 Hyperlipidemia, unspecified; E53.8 Deficiency of other specified B group vitamins
CPT/HCPCS: 36415; 80053; 80061; 82043; 82607; 83036; 85025